=== PATIENT | female | born 1935 | race Caucasian/White ===

== ENCOUNTER 2018-08-15 18:56 | Emergency (ER) | payer OTHER, BC ==
[2018-08-15 19:02] VITALS: BP 97/72; PULSE 64; TEMP 98; BMI 28.3
--- NOTE | 2018-08-15 20:11 | PDOC ---
History of Present Illness - General Chief Complaint: Injury Stated Complaint: FALL, BACK PAIN Time Seen by Provider: 08/15/18 19:57 History Source: Patient, Old Records Exam Limitations: No Limitations - History of Present Illness Initial Comments: 08/15/18 20:08 HISTORY OF PRESENT ILLNESS: This is an 83-year-old woman who is a poor historian presents emergency Department with right hip pain status post fall aroung 3pm. When questioned about the fall patient is unable to recall any of the circumstances. Patient does state that she "passed out" prior to falling. Patient does not remember striking her head. Patient states she was able to get to her feet with assistance and a continued running her daily errands. Patient denies any fevers, chills, incontinence, oral trauma, chest pain, shortness of breath, abdominal pain, nausea, vomiting, diarrhea, dysuria, hematuria. No recent travel or sick contacts. PAST MEDICAL HISTORY: does not remember SURGICAL HISTORY: Denies ALLERGIES: No known drug allergies PMD- does not remember Cards- [facility] REVIEW OF SYSTEMS- poor historian and unreliable General/Constitutional: Denies fever or chills. Denies weakness, weight change. HEENT: Denies change in vision. Denies ear pain or discharge. Denies sore throat. Cardiovascular: Denies chest pain or shortness of breath. Respiratory: Denies cough, wheezing, or hemoptysis. Gastrointestinal: Denies nausea, vomiting, diarrhea or constipation. Denies rectal bleeding. Genitourinary: Denies dysuria, frequency, or change in urination. Musculoskeletal: Right posterior hip pain. Denies neck or back pain. Skin and breasts: Denies rash or easy bruising. Neurologic: Denies headache, vertigo, or loss of sensation. + loss of consciousness. Psychiatric: Denies depression or anxiety. Endocrine: Denies increased thirst. Denies abnormal weight change. Hematologic/Lymphatic: Denies anemia, easy bleeding, or history of blood clots. Allergic/Immunologic: Denies hives or skin allergy. Denies latex allergy. PHYSICAL EXAM General Appearance: Well-appearing, appropriately dressed. No apparent distress , no intoxication. HEENT: EOMI, PERRLA, normal ENT inspection, normal voice, TMs normal, pharynx normal. No conjunctival pallor. No photophobia, scleral icterus. Neck: Supple. Trachea midline. No tenderness, rigidity, carotid bruit, stridor , lymphadenopathy, or thyromegaly. Respiratory/Chest: Lungs CTAB. No shortness of breath, chest tenderness, respiratory distress, accessory muscle use. No crackles, rales, rhonchi, stridor , wheezing, dullness Cardiovascular: RRR. S1, S2. No JVD, murmur, bradycardia, tachycardia. BP-97/ 72. Vascular Pulses: Dorsalis-Pedis (R): 2+, Dorsalis-Pedis (L): 2+ Gastrointestinal/Abdominal: Normal bowel sounds. Abdomen soft, non-distended. No tenderness or rebound tenderness. No organomegaly, pulsatile mass, guarding, hernia, hepatomegaly, splenomegaly. Lymphatic: No adenopathy, tenderness. Musculoskeletal/Extremities: Normal inspection. FROM of all extremities, normal capillary refill. Pelvis Stable. TTP right posterior trochanter. No deformity to right femur. No CVA tenderness. No tenderness to extremities, swelling, erythema or deformity. +1 pitting edema to BLE. Integumentary: Appropriate color, dry, warm. No cyanosis, erythema, jaundice or rash Neurologic: heel cover softener II-XII intact. Fully oriented, alert. Appropriate mood/affect. Motor strength 5/5. No appreciable EOM palsy, facial droop or sensory deficit. Past History - Past Medical History Allergies/Adverse Reactions: Allergies Allergy/AdvReac Type Severity Reaction Status Date / Time No Known Allergies Allergy Verified 10/20/16 19:55 Home Medications: Ambulatory Orders Hydrochlorothiazide 25 mg PO DAILY 10/20/16 Lisinopril 5 mg PO DAILY 10/20/16 HTN: Yes (believe on a diuretic combination antihypertensive) - Suicide/Smoking/Psychosocial Hx Smoking History: Never smoked Hx Alcohol Use: No Substance Use Type: None *Physical Exam - Vital Signs Last Vital Signs Temp Pulse Resp BP Pulse Ox 98.0 F 64 20 97/72 100 08/15/18 18:58 08/15/18 18:58 08/15/18 18:58 08/15/18 18:58 08/15/18 18:58 ED Treatment Course - LABORATORY CBC & Chemistry Diagram: 08/15/18 21:40 08/15/18 21:40 Medical Decision Making - Medical Decision Making 08/15/18 20:19 A/P: 83-year-old woman with questionable syncopal episode and right hip pain A&O 3 No obvious trauma to head No tenderness to palpation of cervical spine Lungs clear to auscultation bilaterally RRR. S1 and S2 present. No murmur, rub or gallop noted Normoactive bowel sounds Abdomen soft nontender nondistended Tenderness to palpation over the right trochanter posteriorly. No tenderness to palpation of the right femur Pelvis stable No shortening or rotation of RLE Able to perform straight leg raises without difficulty X-rays of right hip, pelvis and femur to rule out fracture- less likely as she has been walking since injury. Cardiac workup as patient had a ?syncopal episode- unclear as patient is unreliable and poor historian CT of the head and neck given fall from standing height I will call the patient's tunneller Dr. Boswell Patient will likely need admission. 08/15/18 22:35 EKG reveals sinus bradycardia with rate of 57. QTC-467ms. No ischemic changes noted. Laboratory testing reveals potassium-3.4. Otherwise normal including normal troponin. 08/16/18 01:17 Patient expressed displeasure in length of time of evaluation. CT scan has not yet been performed. Explained to the patient she needs full and thorough evaluation of her syncopal episode prior to discharge. Patient became increasingly angry and was requesting to leave AGAINST MEDICAL ADVICE. Was explained to the patient that at 12:30 in the morning is unsafe for somebody who has a previous fall that day to walk home without assistance. Patient pickle solution maker her cell phone and called her friend who is a engine watchman who showed up for transport home. Patient gave permission to discuss the case with the previous. As explained to the engine watchman that the patient needs continued evaluation and leaving the hospital AGAINST MEDICAL ADVICE potentially dangerous that she needs continued evaluation of her syncopal episode. understood that the patient was not being discharged but leaving AGAINST MEDICAL ADVICE. agreed to take patient home where she lives by herself. As explained to the patient that she should follow-up with Dr. Boswell for continued evaluation as an outpatient. Patient has agreed to see Dr. Boswell as an outpatient for continued evaluation. As explained to the patient her radiographic testing had not been evaluated and she may receive a phone call to return for care if any abnormalities are noted. Patient verbalizes understanding. *DC/Admit/Observation/Transfer Diagnosis at time of Disposition: Syncope and collapse - Discharge Dispostion Disposition: AGAINST MEDICAL ADVICE Condition at time of disposition: Fair - Referrals - Patient Instructions Additional Instructions: Your leaving the hospital AGAINST MEDICAL ADVICE. Evaluation has not been completed in the emergency department or possible hospitalization. Please call Dr. Boswell her tunneller for continued evaluation for syncopal episode including ultrasound studies. Take Tylenol or Motrin as needed for pain. Follow manufacture's instructions for appropriate dosage. As you are leaving AGAINST MEDICAL ADVICE you can return to the hospital at any time for continued evaluation. - Post Discharge Activity
[2018-08-15 21:48] LABS: BASO % 0.4 % (0-2.0); EOS % 1.1 % (0-4.5); HEMATOCRIT 35.4 % (32.4-45.2); HEMOGLOBIN 11.7 GM/dL (10.7-15.3); MCH 30.7 pg (25.7-33.7); MCHC 33.1 g/dl (32.0-36.0); MEAN CELL VOLUME 92.7 fl (80-96); MEAN PLT VOLUME 8.7 fl (7.5-11.1); MONO % 7.8 % (3.8-10.2); NEUT % 67.7 % (42.8-82.8); PLATELET COUNT 262 K/MM3 (134-434); RBC 3.81 M/mm3 (3.60-5.2); WHITE BLOOD COUNT 7.3 K/mm3 (4.0-10.0)
[2018-08-15 21:59] LABS: INR 1.04 (0.83-1.09); PROTHROMBIN TIME (PATIENT) 12.3 SEC (9.7-13.0)
[2018-08-15 22:13] LABS: ALBUMIN 3.3 g/dl (3.4-5.0); ALK PHOS 76 U/L (45-117); ANION GAP 8 MMOL/L (8-16); BILIRUBIN,TOTAL 0.6 mg/dL (0.2-1); BLOOD UREA NITROGEN 15 mg/dL (7-18); CALCIUM 8.5 mg/dL (8.5-10.1); CHLORIDE 105 mmol/L (98-107); CO2 28 mmol/L (21-32); CREATININE 0.9 mg/dL (0.55-1.3); GLUCOSE,RANDOM 92 mg/dL (74-106); MAGNESIUM 2.3 mg/dL (1.8-2.4); POTASSIUM 3.4 mmol/L (3.5-5.1); SGOT/AST 13 U/L (15-37); SGPT/ALT 11 U/L (13-61); SODIUM 140 mmol/L (136-145); TOT PROT 6.4 g/dl (6.4-8.2)
--- NOTE | 2018-08-17 11:05 | EKG ---
Test Reason : Blood Pressure : / mmHG Vent. Rate : 058 BPM Atrial Rate : 058 BPM P-R Int : 202 ms QRS Dur : 096 ms QT Int : 476 ms P-R-T Axes : 064 -01 051 degrees QTc Int : 467 ms SINUS BRADYCARDIA OTHERWISE NORMAL ECG WHEN COMPARED WITH ECG OF 01-DEC-2013 10:27, PREMATURE VENTRICULAR COMPLEXES ARE NO LONGER PRESENT Confirmed by JEFERSON GRIMES MD ([id number]) on 08/17/2018 11:04:28 AM Referred By: Confirmed By:JEFERSON GRIMES MD
== END 2018-08-16 01:42 | disposition left against medical advice (07) ==
LOC: JER 18:56
DX: R55 Syncope and collapse (principal); W18.39XA Other fall on same level, initial encounter; Y93.89 Activity, other specified; Y92.038 Other place in apartment as the place of occurrence of the external cause; Y99.8 Other external cause status; I10 Essential (primary) hypertension
CPT/HCPCS: 36415; 71046-TC-FY; 73523-TC-FY; 73552-TC-RT-FY; 80053; 82272; 82550; 83735; 84484; 85025; 85610; 93005; 93010; 99282-25

== ENCOUNTER 2018-12-01 17:10 | Inpatient (IN) | payer OTHER, BC ==
--- NOTE | 2018-12-01 17:21 | PDOC ---
Rapid Medical Evaluation Chief Complaint: Wound Time Seen by Provider: 12/01/18 17:16 Medical Evaluation: Allergies Allergy/AdvReac Type Severity Reaction Status Date / Time No Known Allergies Allergy Verified 10/20/16 19:55 12/01/18 17:20 I have performed a brief in person evaluation of this patient. The patient's CC: Foot infection HPI: Pt is an 83 YO female who is accompanied by her fire extinguisher charger who states that over the past 6 months she has had a right foot infection and went to see her PCP and he gave her an abx which she did not take. Denies hx of DM. PE: Skin: not evaluated at triage Heart: RRR Lungs: Clear MS. moves all extremities without difficulty. Neuro: Alert and oriented Psch: appropriate affect The patient will proceed to main ED for further evaluation. Discharge Disposition - Diagnosis Wound cellulitis - Referrals - Patient Instructions - Post Discharge Activity
[2018-12-01 17:55] LABS: BASO % 0.7 % (0-2.0); EOS % 0.8 % (0-4.5); HEMATOCRIT 41.2 % (32.4-45.2); HEMOGLOBIN 13.7 GM/dL (10.7-15.3); MCH 30.4 pg (25.7-33.7); MCHC 33.3 g/dl (32.0-36.0); MEAN CELL VOLUME 91.4 fl (80-96); MEAN PLT VOLUME 8.7 fl (7.5-11.1); MONO % 6.6 % (3.8-10.2); NEUT % 76.9 % (42.8-82.8); PLATELET COUNT 295 K/MM3 (134-434); RDW 13.4 % (11.6-15.6); WHITE BLOOD COUNT 9.4 K/mm3 (4.0-10.0)
[2018-12-01 18:24] LABS: BLOOD UREA NITROGEN 32 mg/dL (7-18); CHLORIDE 101 mmol/L (98-107); GLUCOSE,RANDOM 94 mg/dL (74-106); POTASSIUM 3.6 mmol/L (3.5-5.1); SODIUM 139 mmol/L (136-145)
[2018-12-01 18:25] LABS: ALBUMIN 3.8 g/dl (3.4-5.0); ALK PHOS 118 U/L (45-117); ANION GAP 10 MMOL/L (8-16); BILIRUBIN,TOTAL 0.4 mg/dL (0.2-1); CALCIUM 9.2 mg/dL (8.5-10.1); CO2 29 mmol/L (21-32); SGOT/AST 22 U/L (15-37); SGPT/ALT 15 U/L (13-61); TOT PROT 7.1 g/dl (6.4-8.2)
--- NOTE | 2018-12-01 20:05 | PDOC ---
History of Present Illness - General Chief Complaint: Wound Stated Complaint: FOOT PAIN Time Seen by Provider: 12/01/18 17:16 History Source: Patient, Other (friends) - History of Present Illness Occurred: reports: other Lower Extremity Pain Location: right: leg Past History - Past Medical History Allergies/Adverse Reactions: Allergies Allergy/AdvReac Type Severity Reaction Status Date / Time No Known Allergies Allergy Verified 12/01/18 17:17 Home Medications: Ambulatory Orders Hydrochlorothiazide 25 mg PO DAILY 10/20/16 Lisinopril 5 mg PO DAILY 10/20/16 COPD: No CHF: No HTN: Yes (believe on a diuretic combination antihypertensive) - Immunization History Immunization Up to Date: Yes - Suicide/Smoking/Psychosocial Hx Smoking History: Never smoked Hx Alcohol Use: No Drug/Substance Use Hx: No Substance Use Type: None Review of Systems - Review of Systems Constitutional: No: Chills, Fever Respiratory: No: Shortness of Breath Cardiac (ROS): No: Chest Pain, Palpitations *Physical Exam - Vital Signs Last Vital Signs Temp Pulse Resp BP Pulse Ox 97.4 F L 106 H 17 134/83 98 12/01/18 17:18 12/01/18 17:18 12/01/18 17:18 12/01/18 17:18 12/01/18 17:18 - Physical Exam General Appearance: Yes: Appropriately Dressed. No: Apparent Distress HEENT: positive: Normal Voice Neck: positive: Supple Respiratory/Chest: positive: Lungs Clear, Normal Breath Sounds. negative: Respiratory Distress Cardiovascular: positive: Regular Rate, S1, S2 Extremity: positive: Pedal Edema (3+ edema w/ venous stasis changes b/l, RLE w/ diffuse erythema to R foot extending into leg, sig ttp w/ increased warmth, unable to palpate pedal pulses b/l) Integumentary: positive: Dry, Warm Neurologic: positive: Fully Oriented, Alert, Normal Mood/Affect Moderate Sedation - Procedure Monitoring Vital Signs: Procedure Monitoring Vital Signs Temperature 97.4 F L 12/01/18 17:18 Pulse Rate 106 H 12/01/18 17:18 Respiratory Rate 17 12/01/18 17:18 Blood Pressure 134/83 12/01/18 17:18 O2 Sat by Pulse Oximetry (%) 98 12/01/18 17:18 ED Treatment Course - LABORATORY CBC & Chemistry Diagram: 12/01/18 17:43 12/01/18 17:43 - ADDITIONAL ORDERS Additional order review: Laboratory Results 12/01/18 12/01/18 17:43 17:43 WBC 9.4 RBC 4.50 Hgb 13.7 Hct 41.2 D MCV 91.4 MCH 30.4 MCHC 33.3 RDW 13.4 Plt Count 295 MPV 8.7 Absolute Neuts (auto) 7.2 Neutrophils % 76.9 Lymphocytes % 15.0 D Monocytes % 6.6 Eosinophils % 0.8 Basophils % 0.7 Nucleated RBC % 0 Sodium 139 Potassium 3.6 Chloride 101 Carbon Dioxide 29 Anion Gap 10 BUN 32 H Creatinine 1.0 Creat Clearance w eGFR 52.69 Random Glucose 94 Calcium 9.2 Total Bilirubin 0.4 AST 22 ALT 15 Alkaline Phosphatase 118 H Total Protein 7.1 Albumin 3.8 12/01/18 17:43 RBC 4.50 MCV 91.4 MCHC 33.3 RDW 13.4 MPV 8.7 Neutrophils % 76.9 Lymphocytes % 15.0 D Monocytes % 6.6 Eosinophils % 0.8 Basophils % 0.7 Medical Decision Making - Medical Decision Making 12/01/18 20:04 83 yo F, h/o HTN, chronic LE edema, prescribed keflex 2 weeks ago for RLE cellulitis, now brought in by friends (a nurse and cover stripper), over concern that infection is getting worse and that pt may not be taking antibiotics. States patient resides alone w/ no family support and does not currently have any home services. Sent. Denies any fever, chills, malaise, chest pain, shortness of breath or palpitations PMD: Dr Eve Greer See exam RLE cellulitis Possible failed po abx -IV abx -labs -US -admit 12/01/18 21:20 Labs unremarkable. Case d/w Dr Swain and pt admitted to Dr Greer *DC/Admit/Observation/Transfer Diagnosis at time of Disposition: Cellulitis of right lower extremity - Discharge Dispostion Condition at time of disposition: Fair Decision to Admit order: Yes - Referrals Referrals: Eve Greer MD [Primary Care Provider] - - Patient Instructions - Post Discharge Activity
[2018-12-01] MEDS ORDERED: VANCOMYCIN 1,000 MG in DEXTROSE 5%-WATER - 250 ML IVPB ONE (20:07)
[2018-12-01] MEDS ORDERED: VANCOMYCIN 1 GRAM (PRE-DOCKED) 1,000 MG/250 ML BAG IVPB ONE (20:11)
[2018-12-01] MEDS ORDERED: LORazepam 1 MG TABLET PO ONE (20:12)
[2018-12-01] MEDS ORDERED: SODIUM CHLORIDE 500 ML IV STA (20:26)
[2018-12-01] MEDS ORDERED: LORazepam 0.5 MG TABLET ONE (20:49)
--- NOTE | 2018-12-01 21:34 | PDOC ---
*Physical Exam - Vital Signs Last Vital Signs Temp Pulse Resp BP Pulse Ox 97.4 F L 106 H 17 134/83 98 12/01/18 17:18 12/01/18 17:18 12/01/18 17:18 12/01/18 17:18 12/01/18 17:18 ED Treatment Course - LABORATORY CBC & Chemistry Diagram: 12/01/18 17:43 12/01/18 17:43 - ADDITIONAL ORDERS Additional order review: Laboratory Results 12/01/18 17:43 Sodium 139 Potassium 3.6 Chloride 101 Carbon Dioxide 29 Anion Gap 10 BUN 32 H Creatinine 1.0 Creat Clearance w eGFR 52.69 Random Glucose 94 Calcium 9.2 Total Bilirubin 0.4 AST 22 ALT 15 Alkaline Phosphatase 118 H Total Protein 7.1 Albumin 3.8 12/01/18 17:43 RBC 4.50 MCV 91.4 MCHC 33.3 RDW 13.4 MPV 8.7 Neutrophils % 76.9 Lymphocytes % 15.0 D Monocytes % 6.6 Eosinophils % 0.8 Basophils % 0.7 - Medications Given in the ED: ED Medications Discontinued Medications Generic Name Dose Route Start Last Admin Trade Name Freq PRN Reason Stop Dose Admin Vancomycin HCl 1,000 mg/ 250 mls @ 250 mls/hr 12/01/18 20:07 12/01/18 20:39 Dextrose IVPB 12/01/18 21:06 250 mls/hr ONCE ONE Administration Protocol Sodium Chloride 500 mls @ 500 mls/hr 12/01/18 20:26 12/01/18 20:57 Normal Saline - IV 12/01/18 21:25 500 mls/hr ASDIR STA Administration Lorazepam 1 mg 12/01/18 20:12 12/01/18 20:57 Ativan - PO 12/01/18 20:13 1 mg ONCE ONE Administration Medical Decision Making - Medical Decision Making 12/01/18 21:33 Patient seen by the advanced practice provider under my direct supervision. Ancillary testing reviewed as necessary. I agree with plan as outlined by the advanced practice provider. *DC/Admit/Observation/Transfer Diagnosis at time of Disposition: Cellulitis of right lower extremity - Discharge Dispostion Condition at time of disposition: Fair - Referrals - Patient Instructions - Post Discharge Activity
[2018-12-02] MEDS: AMPICILLIN NA/SULBACTAM NA 1.5 GM in SODIUM CHLORIDE 100 ML IVPB SCH ×4 (04:37→16:44)
[2018-12-02 08:36] VITALS: BMI 26.8
[2018-12-02 09:40] LABS: N-TERMINAL BNP 167.3 pg/ml (5-450)
--- NOTE | 2018-12-02 09:44 | HP ---
Admitting History and Physical - Primary Care Physician PCP: Eve Greer - Admission Chief Complaint: leg swelling and redness History of Present Illness: has history of chronic leg swelling for at least 2-3 months, US has been negative for DVT came to office on Nov 11 for evaluatino of edema, increased redness was given keflex may or may not have been taking it legs are still slightly swollen and quite erythematous, so she was brought in by friend for evaluation and treatment History Source: Patient, Medical Record Limitations to Obtaining History: Other (very hard of hearing) - Past Medical History Cardiovascular: Yes: HTN ...: No - Past Surgical History Past Surgical History: Yes: None - Smoking History Smoking history: Never smoked Have you smoked in the past 12 months: No - Alcohol/Substance Use Hx Alcohol Use: No History of Substance Use: reports: None - Social History Usual Living Arrangement: Yes: Alone ADL: Independent History of Recent Travel: No Home Medications - Allergies Allergies/Adverse Reactions: Allergies Allergy/AdvReac Type Severity Reaction Status Date / Time No Known Allergies Allergy Verified 12/01/18 17:17 - Home Medications Home Medications: Ambulatory Orders Hydrochlorothiazide 25 mg PO DAILY 10/20/16 Lisinopril 5 mg PO DAILY 10/20/16 Family Disease History - Family Disease History Family History: Unremarkable Review of Systems - Review of Systems Constitutional: reports: No Symptoms Eyes: reports: No Symptoms HENT: reports: No Symptoms Neck: reports: No Symptoms Cardiovascular: reports: No Symptoms Respiratory: reports: No Symptoms Gastrointestinal: reports: No Symptoms Genitourinary: reports: No Symptoms Musculoskeletal: reports: No Symptoms Integumentary: reports: No Symptoms, Other (legs are tender) Physical Examination Vital Signs: Vital Signs Temperature 97.3 F L 12/02/18 08:05 Pulse Rate 72 12/02/18 08:05 Respiratory Rate 20 12/02/18 08:05 Blood Pressure 97/60 12/02/18 08:05 O2 Sat by Pulse Oximetry (%) 98 12/02/18 08:47 Constitutional: Yes: Well Nourished, Poor Hygeine Eyes: Yes: Conjunctiva Clear, EOM Intact HENT: Yes: Normocephalic Neck: Yes: Trachea Midline Cardiovascular: Yes: Regular Rate and Rhythm Respiratory: Yes: CTA Bilaterally Gastrointestinal: Yes: Normal Bowel Sounds, Soft Edema: Yes Edema: LLE: 1+, RLE: 1+ Integumentary: Yes: Other (lower leg to mid calf erythematous bilaterally shallow scabbed ulcers over right norman warmth and tenderness present) Neurological: Yes: WNL ...Motor Strength: WNL Labs: CBC, BMP 12/01/18 17:43 12/01/18 17:43 Imaging - Results X-ray: Report Reviewed Ultrasound: Report Reviewed (no DVT, no osteo) Problem List - Problems (1) Hypertension Code(s): I10 - ESSENTIAL (PRIMARY) HYPERTENSION (2) Cellulitis of right lower extremity Code(s): L03.115 - CELLULITIS OF RIGHT LOWER LIMB Assessment/Plan iv abx dvt prophylaxis 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
[2018-12-02] MEDS ORDERED: ACETAMINOPHEN 325 MG TABLET (FP) PO PRN (09:45)
[2018-12-02] MEDS ORDERED: LISINOPRIL 5 MG TABLET (FP) PO SCH (10:00)
[2018-12-02] MEDS ORDERED: SODIUM CHLORIDE 100 ML IVPB ONE ×2 (11:17→16:42)
[2018-12-02] MEDS ORDERED: AMPICILLIN NA/SULBACTAM NA 1.5 GM VIAL ONE ×2 (11:17→16:42)
[2018-12-02] MEDS: ENOXAPARIN NA (PORCINE) 40 MG/0.4 ML DISP.SYRIN SQ SCH (11:21)
[2018-12-02] MEDS: LISINOPRIL 5 MG TABLET (FP) PO SCH (11:32)
--- NOTE | 2018-12-02 12:15 | EKG ---
Test Reason : Blood Pressure : / mmHG Vent. Rate : 072 BPM Atrial Rate : 072 BPM P-R Int : 188 ms QRS Dur : 098 ms QT Int : 432 ms P-R-T Axes : 064 -15 043 degrees QTc Int : 473 ms NORMAL SINUS RHYTHM NORMAL ECG WHEN COMPARED WITH ECG OF 15-AUG-2018 21:54, NO SIGNIFICANT CHANGE WAS FOUND Confirmed by CHRIS BORJAS MD ([id number]) on 12/02/2018 12:15:48 PM Referred By: Confirmed By:CHRIS BORJAS MD
[2018-12-02] MEDS: HYDROCHLOROTHIAZIDE 25 MG TABLET (FP) PO SCH (13:27)
--- NOTE | 2018-12-02 19:02 | PN ---
Progress Note (short form) - Note Progress Note: ID CONSULT DICTATED CELLULITIS LE BILATERALLY OBTAIN BC EMPIRIC CEFAZOLIN
[2018-12-02] MEDS ORDERED: CEFAZOLIN 1 GM/D5W 1 GM/50 ML BAG IVPB SCH (19:15)
[2018-12-02] MEDS: CEFAZOLIN 1 GM/D5W 1 GM/50 ML BAG IVPB SCH (21:19)
--- NOTE | 2018-12-03 01:20 | CONS ---
DATE OF CONSULTATION: 12/02/2018 The patient is an 83-year-old female evaluated for cellulitis of the lower extremities bilaterally. History was obtained from the chart as the patient cannot give a reliable history. According to the chart, she has had a several month history of worsening lower extremity edema. She recently developed erythema, warmth, and swelling of the lower extremities bilaterally and was prescribed Keflex. It is not clear whether or not the patient took the prescribed medication. She now presents to the emergency room with worsening bilateral lower extremity swelling, erythema, and warmth. In the emergency room, she was noted to have bilateral lower extremity cellulitis. An x-ray of the lower extremity shows soft tissue swelling. Doppler examination was negative for DVT. Patient appears slightly confused. She is very hard of hearing. She denies any traumatic injury, although she is noted to have a scabbed abrasion on the right lower extremity. She denies any associated fever or chills. PAST MEDICAL HISTORY: Positive for hypertension. ALLERGIES: No known allergies. MEDICATIONS: Hydrochlorothiazide, lisinopril. SOCIAL HISTORY: Lives at home, nonsmoker, nondrinker. REVIEW OF SYSTEMS: Neurologic: No loss of consciousness, seizure activity, focal weakness. Cardiac: Negative chest pain or palpitations. Respiratory: Negative cough or sputum production. Gastrointestinal: Negative vomiting or diarrhea. Genitourinary: Negative for urinary tract infection. LABORATORY DATA: White count of 9.4, hematocrit 41.2, platelet count of 295, creatinine 1.0. PHYSICAL EXAMINATION: General: She is an elderly female. She appears chronically ill, hard of hearing. Vital Signs: Temperature 98.9, blood pressure 112/76, pulse 85 and regular, respirations 18 per minute. HEENT: Sclerae are anicteric. Heart Sounds: S1, S2. Lungs: Grossly clear. Abdomen: Soft, nontender. Extremities: Bilateral lower extremity edema. There is cellulitis of the lower extremities bilaterally, right greater than left. The right extremity shows some scabbed ulcerations/abrasions over the distal pretibial area. There is erythema and warmth extending from the pretibial area to the foot. A smaller area of erythema is noted in the pretibial aspect of the left lower extremity. No lymphangitic streaking. No drainage noted. IMPRESSION: Bilateral lower extremity cellulitis. PLAN: Await blood culture results. Empiric antibiotic coverage with cefazolin 1 g IV piggyback every 8 hours. Elevation. Analgesics. Local wound care. Will follow. Thank you for the kind referral. RAIMUNDO PEREZ M.D. [id number]
[2018-12-03] MEDS: CEFAZOLIN 1 GM/D5W 1 GM/50 ML BAG IVPB SCH ×3 (02:55→18:04)
--- NOTE | 2018-12-03 08:42 | PN ---
Progress Note (short form) - Note Progress Note: admitted for cellulitis no new complaints Vital Signs Period Temp Pulse Resp BP Sys/Qureshi Pulse Ox Last 24 Hr 98.3 F-99.5 F 65-87 18-18 101-112/43-76 98 s1s2 rrr lungs cta abd soft lower ext edema better shallow likely venous ulcers over right lower ext, oozing serous discharge erythema better scaly old skin on both feet htn cellulitis consult appreciated cont iv abx physical therapy topical lac-hydrin to feet Problem List - Problems (1) Hypertension Code(s): I10 - ESSENTIAL (PRIMARY) HYPERTENSION (2) Cellulitis of right lower extremity Code(s): L03.115 - CELLULITIS OF RIGHT LOWER LIMB
[2018-12-03] MEDS: LISINOPRIL 5 MG TABLET (FP) PO SCH (09:37)
[2018-12-03] MEDS: ENOXAPARIN NA (PORCINE) 40 MG/0.4 ML DISP.SYRIN SQ SCH (09:37)
[2018-12-03] MEDS: HYDROCHLOROTHIAZIDE 25 MG TABLET (FP) PO SCH (09:37)
[2018-12-03] MEDS: AMMONIUM LACTATE 12% LOTION 225 GM BOTTLE TP SCH (14:52)
[2018-12-03] MEDS ORDERED: PT OWN MED DRAWER 7, Y5N ONE (19:07)
[2018-12-04] MEDS: CEFAZOLIN 1 GM/D5W 1 GM/50 ML BAG IVPB SCH ×3 (02:14→17:40)
[2018-12-04 07:56] LABS: BASO % 0.7 % (0-2.0); EOS % 2.7 % (0-4.5); HEMATOCRIT 31.5 % (32.4-45.2); LYMPH % 23.9 % (8-40); MCH 32.3 pg (25.7-33.7); MCHC 34.8 g/dl (32.0-36.0); MEAN CELL VOLUME 92.9 fl (80-96); MEAN PLT VOLUME 9.3 fl (7.5-11.1); MONO % 7.8 % (3.8-10.2); NEUT % 64.9 % (42.8-82.8); PLATELET COUNT 202 K/MM3 (134-434); RBC 3.39 M/mm3 (3.60-5.2); RDW 13.3 % (11.6-15.6); WHITE BLOOD COUNT 5.3 K/mm3 (4.0-10.0)
[2018-12-04 08:35] LABS: ALBUMIN 2.7 g/dl (3.4-5.0); ALK PHOS 97 U/L (45-117); ANION GAP 8 MMOL/L (8-16); BILIRUBIN,TOTAL 0.3 mg/dL (0.2-1); BLOOD UREA NITROGEN 28 mg/dL (7-18); CHLORIDE 107 mmol/L (98-107); CO2 28 mmol/L (21-32); CREATININE 0.9 mg/dL (0.55-1.3); GLUCOSE,RANDOM 95 mg/dL (74-106); POTASSIUM 3.7 mmol/L (3.5-5.1); SGOT/AST 13 U/L (15-37); SGPT/ALT 10 U/L (13-61); SODIUM 143 mmol/L (136-145); TOT PROT 5.4 g/dl (6.4-8.2)
--- NOTE | 2018-12-04 08:59 | PN ---
Progress Note (short form) - Note Progress Note: admitted for cellulitis no new complaints CBC, BMP 12/04/18 06:45 12/04/18 06:45 Vital Signs Period Temp Pulse Resp BP Sys/Qureshi Pulse Ox Last 24 Hr 98.4 F-99.3 F 60-71 18-20 94-114/46-60 96-96 s1s2 rrr lungs cta abd soft lower ext edema better shallow likely venous ulcers over right lower ext, oozing serous discharge erythema better scaly old skin on both feet htn cellulitis consult appreciated cont iv abx change to po within 24 hours if ok with id physical therapy topical lac-hydrin to feet xerofrom dressing change dc planning with VNS pt refuses STR Problem List - Problems (1) Hypertension Code(s): I10 - ESSENTIAL (PRIMARY) HYPERTENSION (2) Cellulitis of right lower extremity Code(s): L03.115 - CELLULITIS OF RIGHT LOWER LIMB
[2018-12-04] MEDS: HYDROCHLOROTHIAZIDE 25 MG TABLET (FP) PO SCH (10:07)
[2018-12-04] MEDS: ENOXAPARIN NA (PORCINE) 40 MG/0.4 ML DISP.SYRIN SQ SCH (10:08)
--- NOTE | 2018-12-04 13:19 | PN ---
Progress Note, Physician History of Present Illness: Awake, alert Hard of hearing No c/o leg pain Afebrile WBC WNL BC (-) - Current Medication List Current Medications: Active Medications Acetaminophen (Tylenol -) 650 mg PO Q6H PRN PRN Reason: PAIN Enoxaparin Sodium (Lovenox -) 40 mg SQ DAILY [facility] Last Admin: 12/04/18 10:08 Dose: 40 mg Hydrochlorothiazide (Hctz -) 25 mg PO DAILY [facility] Last Admin: 12/04/18 10:07 Dose: 25 mg Cefazolin Sodium (Ancef 1 Gm Premixed Ivpb -) 1 gm in 50 mls @ 100 mls/hr IVPB Q8H-IV [facility] Last Admin: 12/04/18 10:08 Dose: 100 mls/hr Lactic Acid (Lac-Hydrin 12) 1 applic TP DAILY [facility] Last Admin: 12/03/18 14:52 Dose: 1 applic - Objective Vital Signs: Vital Signs Temperature 98.8 F 12/04/18 09:28 Pulse Rate 71 12/04/18 09:28 Respiratory Rate 20 12/04/18 09:28 Blood Pressure 111/61 12/04/18 09:28 O2 Sat by Pulse Oximetry (%) 99 12/04/18 09:00 Constitutional: Yes: No Distress, Obese Eyes: Yes: Conjunctiva Clear Cardiovascular: Yes: Regular Rate and Rhythm, S1, S2 Respiratory: Yes: CTA Bilaterally Gastrointestinal: Yes: Normal Bowel Sounds, Soft, Abdomen, Obese Extremities: Yes: Other (dry abrasion R pretibial area. Erythema/ warmth LE bilaterally almost completely resolved) Edema: Yes Edema: LLE: 2+, RLE: 2+ Labs: CBC, BMP 12/04/18 06:45 12/04/18 06:45 Assessment/Plan Bilateral LE cellulitis- improved Substitute po keflex 500mg po bid x7d next 24h
[2018-12-04] MEDS ORDERED: PT OWN MED DRAWER 7, Y5N ONE (13:40)
[2018-12-04] MEDS: AMMONIUM LACTATE 12% LOTION 225 GM BOTTLE TP SCH (13:42)
[2018-12-05] MEDS: CEFAZOLIN 1 GM/D5W 1 GM/50 ML BAG IVPB SCH ×2 (02:34→09:33)
--- NOTE | 2018-12-05 08:05 | DS ---
Physical Examination Vital Signs: Vital Signs Temperature 98.2 F 12/05/18 06:00 Pulse Rate 57 L 12/05/18 06:00 Respiratory Rate 18 12/05/18 06:00 Blood Pressure 128/57 L 12/05/18 06:00 O2 Sat by Pulse Oximetry (%) 99 12/04/18 21:00 Constitutional: Yes: No Distress, Calm Eyes: Yes: EOM Intact HENT: Yes: Normocephalic Neck: Yes: Trachea Midline Cardiovascular: Yes: Regular Rate and Rhythm Respiratory: Yes: CTA Bilaterally Gastrointestinal: Yes: Normal Bowel Sounds, Soft Edema: LLE: 1+, RLE: 1+ Peripheral Pulses WNL: Yes Integumentary: Yes: Other (erythema better, swelling better, shallow clean based ulcers, healing) Neurological: Yes: WNL Labs: CBC, BMP 12/04/18 06:45 12/04/18 06:45 Discharge Summary Reason For Visit: CELLULITIS OF RIGHT LOWER EXTREMITY Current Active Problems Cellulitis of right lower extremity (Acute) Hypertension (Acute) Hospital Course: admitted for lower ext. cellulitis better with iv abx, elevation afebrile, hemodinamically stable medically clear to dc home with VNS Condition: Fair - Instructions Referrals: Eve Greer MD [Primary Care Provider] - Disposition: VNS/HOME HEALTH CARE - Home Medications Comprehensive Discharge Medication List: Ambulatory Orders Hydrochlorothiazide 25 mg PO DAILY 10/20/16 Ammonium Lactate Lotion [Lac-Hydrin 12] 1 applic TP DAILY #1 bottle 12/05/18 Cephalexin [Keflex] 500 mg PO BID #14 capsule 12/05/18
[2018-12-05] MEDS ORDERED: PT OWN MED DRAWER 7, Y5N ONE (09:13)
[2018-12-05 09:18] VITALS: BP 127/65; PULSE 63; TEMP 98
[2018-12-05] MEDS: ENOXAPARIN NA (PORCINE) 40 MG/0.4 ML DISP.SYRIN SQ SCH (09:33)
[2018-12-05] MEDS: HYDROCHLOROTHIAZIDE 25 MG TABLET (FP) PO SCH (09:33)
[2018-12-05] MEDS: AMMONIUM LACTATE 12% LOTION 225 GM BOTTLE TP SCH (09:36)
== END 2018-12-05 12:22 | disposition home health service (06) | DRG 603 ==
LOC: JER 17:10 → JERBED 20:25 → J5S 12-02 06:03
PROVIDERS: ADMIT Internal Medicine; ATTEND Internal Medicine
DX: L03.115 Cellulitis of right lower limb (principal); I83.208 Varicose veins of unspecified lower extremity with both ulcer of other part of lower extremity and inflammation; I10 Essential (primary) hypertension
CPT/HCPCS: 36415; 71045-TC-FY; 73610-TC-RT-FY; 73630-TC-RT-FY; 80053; 83880; 85025; 87040; 93005; 93010; 93971-TC; 97116-GP; 97161-GP; 99283-25

== ENCOUNTER 2019-04-20 14:20 | Inpatient (IN) | payer OTHER, BC ==
--- NOTE | 2019-04-20 14:58 | PDOC ---
History of Present Illness - General Chief Complaint: Bleeding from Anus Stated Complaint: BLEEDING Time Seen by Provider: 04/20/19 14:39 - History of Present Illness Initial Comments: 04/20/19 16:58 83f withpmh of HTN and venous stasis presnets to the ED with her director pediatric for new onset rectal bleeding with clots after going to the bathroom today. She states that she noticed a new "growth" that wasn't there before. As per director pediatric she's got very poor follow up and hates going to the doctor. She saw Dr. Boswell this morning who sent her to this Ed when her BP was in the high 70's. 04/20/19 17:44 Past History - Past Medical History Allergies/Adverse Reactions: Allergies Allergy/AdvReac Type Severity Reaction Status Date / Time No Known Allergies Allergy Verified 04/20/19 14:28 Home Medications: Ambulatory Orders Hydrochlorothiazide 25 mg PO DAILY 10/20/16 Ammonium Lactate Lotion [Lac-Hydrin 12] 1 applic TP DAILY #1 bottle 12/05/18 COPD: No CHF: No HTN: Yes (believe on a diuretic combination antihypertensive) - Immunization History Immunization Up to Date: Yes - Suicide/Smoking/Psychosocial Hx Smoking History: Unknown if ever smoked Have you smoked in the past 12 months: No Cigars Per Day: 0 Information on smoking cessation initiated: No Hx Alcohol Use: No Drug/Substance Use Hx: No Substance Use Type: None Hx Substance Use Treatment: No Review of Systems - Review of Systems Able to Perform ROS?: Yes Constitutional: No: Symptoms Reported HEENTM: No: Symptoms Reported Respiratory: No: Symptoms reported Cardiac (ROS): No: Symptoms Reported ABD/GI: Yes: See HPI : No: Symptoms Reported Musculoskeletal: No: Symptoms Reported Integumentary: Yes: See HPI (b/l leg swelling with pitting edema) Neurological: No: Symptoms reported All Other Systems: Reviewed and Negative *Physical Exam - Vital Signs Last Vital Signs Temp Pulse Resp BP Pulse Ox 98.2 F 73 20 87/42 L 98 04/20/19 14:28 04/20/19 14:28 04/20/19 14:28 04/20/19 14:28 04/20/19 14:28 - Physical Exam General Appearance: Yes: Disheveled HEENT: positive: EOMI, DANNI, Other (edentulous) Respiratory/Chest: positive: Lungs Clear, Normal Breath Sounds. negative: Chest Tender, Respiratory Distress Cardiovascular: positive: Regular Rhythm, Regular Rate, S1, S2 Gastrointestinal/Abdominal: positive: Protuberent. negative: Tender Rectal Exam: positive: other (rectal prolapse 12cm, reduced manually ) Extremity: positive: Pedal Edema, Swelling (4+, chronic), Inflammation Neurologic: positive: Other (PAtient very hard of hearing. ) ED Treatment Course - LABORATORY CBC & Chemistry Diagram: 04/20/19 15:03 04/20/19 15:03 Medical Decision Making - Medical Decision Making 04/20/19 17:33 Rectal prolapse reduced. Basic labs ekg ordered to make sure theres no anemia. Labs WNL, probable Project Construction Assistant Manager worried patient can't take of herself, will admit and get social work faculty member on the case. Spoke to Dr. Vargas about the rectal prolapse, said this is managed by Colorectal Surgery. Will see patient. Patient admitted to Dr Torrez under Dr. Manzo. *DC/Admit/Observation/Transfer Diagnosis at time of Disposition: Dehydration, Hypotension, Rectal prolapse - Discharge Dispostion Decision to Admit order: Yes - Referrals - Patient Instructions - Post Discharge Activity
--- NOTE | 2019-04-20 15:24 | EKG ---
Test Reason : Blood Pressure : / mmHG Vent. Rate : 071 BPM Atrial Rate : 071 BPM P-R Int : 184 ms QRS Dur : 094 ms QT Int : 436 ms P-R-T Axes : 047 -25 095 degrees QTc Int : 473 ms SINUS RHYTHM WITH PREMATURE ATRIAL COMPLEXES CANNOT RULE OUT ANTERIOR INFARCT , AGE UNDETERMINED T WAVE ABNORMALITY, CONSIDER LATERAL ISCHEMIA LEFT AXIS DEVIATION ABNORMAL ECG WHEN COMPARED WITH ECG OF 01-DEC-2018 23:21, PREMATURE ATRIAL COMPLEXES ARE NOW PRESENT T WAVE INVERSION NOW EVIDENT IN LATERAL LEADS Confirmed by MD Tung, Rosalino ([id number]) on 04/20/2019 3:24:12 PM Referred By: Confirmed By:Rosalino Ruby MD
[2019-04-20] MEDS ORDERED: SODIUM CHLORIDE 1,000 ML IV STA (15:36)
[2019-04-20 15:47] LABS: BASO % 0.5 % (0-2.0); EOS % 0.2 % (0-4.5); HEMATOCRIT 39.1 % (32.4-45.2); HEMOGLOBIN 12.8 GM/dL (10.7-15.3); LYMPH % 10.7 % (8-40); MCH 29.6 pg (25.7-33.7); MCHC 32.6 g/dl (32.0-36.0); MEAN CELL VOLUME 90.6 fl (80-96); MEAN PLT VOLUME 9.6 fl (7.5-11.1); MONO % 6.3 % (3.8-10.2); NEUT % 82.3 % (42.8-82.8); RBC 4.32 M/mm3 (3.60-5.2); RDW 14.3 % (11.6-15.6); WHITE BLOOD COUNT 11.5 K/mm3 (4.0-10.0)
[2019-04-20 15:49] LABS: PLATELET COUNT 308 K/MM3 (134-434)
[2019-04-20 15:55] LABS: INR 1.08 (0.83-1.09); PROTHROMBIN TIME (PATIENT) 12.7 SEC (9.7-13.0)
[2019-04-20 15:57] LABS: ACTIVATED PTT 28.4 SECONDS (25.2-36.5)
[2019-04-20 16:16] LABS: ALBUMIN 3.7 g/dl (3.4-5.0); ALK PHOS 109 U/L (45-117); ANION GAP 7 MMOL/L (8-16); BILIRUBIN,TOTAL 1.1 mg/dL (0.2-1); CALCIUM 8.9 mg/dL (8.5-10.1); CHLORIDE 108 mmol/L (98-107); CO2 27 mmol/L (21-32); CREATININE 1.4 mg/dL (0.55-1.3); GLUCOSE,RANDOM 94 mg/dL (74-106); N-TERMINAL BNP 583.7 pg/ml (5-450); POTASSIUM 3.6 mmol/L (3.5-5.1); SGOT/AST 14 U/L (15-37); SGPT/ALT 8 U/L (13-61); SODIUM 142 mmol/L (136-145); TOT PROT 6.6 g/dl (6.4-8.2)
--- NOTE | 2019-04-20 16:28 | PDOC ---
Documentation entered by Adriana Cat SCRIBE, acting as scribe for Kenji Mclaughlin MD. Kenji Mclaughlin MD: This documentation has been prepared by the Stephania ortiz Brenda, SCRIBE, under my direction and personally reviewed by me in its entirety. I confirm that the documentation accurately reflects all work, treatment, procedures, and medical decision making performed by me. Attending Attestation - Resident Resident Name: Salinas Lezama - ED Attending Attestation I have performed the following: I have examined & evaluated the patient, The case was reviewed & discussed with the resident, I agree w/resident's findings & plan, Exceptions are as noted - HPI HPI: 04/20/19 16:20 The patient is an 83 year old female with a significant past medical history of HTN and hx of cellulitis presents to the ED with rectal pain and bleeding. The patient was initially brought to the hospital for a routine appointment with her eyelet operator. However, while in the office, pt began to complain of rectal pain and bleeding and was subsequently brought to the ED. Pt is unable to recall how long the problem has been going on. She denies any abdominal pain. Denies vomiting. Denies F/C. Pt is accompanied to ER by her quality assurance/r&d lab technician, who notes that pt lives alone and has been taking poor care of herself. Pt is supposed to have visiting nurses but has refused to let them into her house. In ED, pt is disheveled, covered in filth with open wounds on her legs. Allergies: NKA Social history: The patient has a history of poor follow up. The patient lives independently, without assistance. PCP: Eve Greer Cards: Dr. Waters - Physicial Exam PE: 04/20/19 15:13 GENERAL: Awake, alert, and fully oriented, in no acute distress. HEAD: No signs of trauma EYES: PERRLA, EOMI, sclera anicteric, conjunctiva clear ENT: Auricles normal inspection, hearing grossly normal, nares patent, oropharynx clear without exudates. Moist mucosa NECK: Nontender, no stepoffs, Normal ROM, supple, no lymphadenopathy, JVD, or masses LUNGS: Breath sounds equal, clear to auscultation bilaterally. No wheezes, and no crackles HEART: Regular rate and rhythm, normal S1 and S2, no murmurs, rubs or gallops ABDOMEN: Soft, nontender, normoactive bowel sounds. No guarding, no rebound. No masses EXTREMITIES: +2 PE BLE, open wounds with bleeding, mild erythema NEUROLOGICAL: Cranial nerves II through XII intact. 5/5 strength and sensation in all extremities, Normal speech, normal gait, normal cerebellar function SKIN: Warm, Dry, normal turgor, no rashes or lesions noted. RECTAL: + Large rectal prolapse with + blood - Medical Decision Making 04/20/19 16:32 83 F with rectal pain and bleeding, found to have large rectal prolapse. Partially reduced in ED. Pt also found to be hypotensive, likely 2/2 dehydration. Pt is disheveled and per pt's quality assurance/r&d lab technician has not been taking care of herself. Will also evaluate for sepsis and anemia. - Labs, cultures - CXR, UA - IVF 04/20/19 16:41 Labs notable for mild RACHEAL Otherwise unremarkable BP improved s/p 1L NS Will admit for dehydration and FTT
[2019-04-20] MEDS ORDERED: CEPHALEXIN MONOHYDRATE 500 MG CAPSULE (UD) PO ONE (17:27)
[2019-04-20] MEDS ORDERED: AMPICILLIN NA/SULBACTAM NA 1.5 GM in SODIUM CHLORIDE 100 ML IVPB ONE (17:29)
--- NOTE | 2019-04-20 17:36 | HP ---
Admitting History and Physical - Primary Care Physician PCP: Eve Greer - Admission Chief Complaint: Recat pain and Bleeding History of Present Illness: 83 yrs old F lives alone H/O Dementia, HTN, frequent Dizziness due to orthostatic Hypotention, chronic venous insufficiency and ulceration, today visited her time study technologist office for routine F/u c/o feeling unwell, rectal pain and some rectal bleeding BP recorded 70/50 and as per time study technologist , patient was more confused from base line so transferred to ED for evaluation in the Ed patient was noted hypotensive and rectal prolapse was noted as per ED note large rectal prolapse pink mucosea with some blood tinged mucous no clinical signs of necrosis, rectal prolapse was reduced , lab shows dehydration received IV Hydration with appropite rise in the BP as per cardiology note patient lives alone considering gradual decline in health and worsening Dementia , needs placement to a [place] History Source: Patient, Medical Record - Past Medical History 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: Yes: Dementia Cardiovascular: Yes: HTN Dermatology: Yes: Cellulitis - Past Surgical History Past Surgical History: Yes: None - Smoking History Smoking history: Unknown if ever smoked Have you smoked in the past 12 months: No - Alcohol/Substance Use Hx Alcohol Use: No History of Substance Use: reports: None - Social History ADL: Independent History of Recent Travel: No Home Medications - Allergies Allergies/Adverse Reactions: Allergies Allergy/AdvReac Type Severity Reaction Status Date / Time No Known Allergies Allergy Verified 04/20/19 14:28 - Home Medications Home Medications: Ambulatory Orders Hydrochlorothiazide 25 mg PO DAILY 10/20/16 Ammonium Lactate Lotion [Lac-Hydrin 12] 1 applic TP DAILY #1 bottle 12/05/18 Family Disease History - Family Disease History Family History: Unremarkable Review of Systems - Review of Systems Constitutional: denies: Chills, Diaphoresis Eyes: denies: Blind Spots, Blurred Vision HENT: denies: Difficult Swallowing, Ear Discharge Neck: denies: Decreased ROM, Lumps, Pain on Movement Cardiovascular: reports: Edema. denies: Chest Pain Respiratory: denies: Cough, Exercise Intolerance, Hemoptysis, Orthopnea, SOB Gastrointestinal: reports: Rectal Bleeding. denies: Abdominal Pain, Bloating Genitourinary: denies: Burning, Discharge Musculoskeletal: denies: Back Pain, Crepitus Neurological: denies: Change in LOC, Change in Speech Psychiatric: denies: Altered Sleep Pattern, Anxiety, Depression Physical Examination Vital Signs: Vital Signs Temperature 98.2 F 04/20/19 15:04 Pulse Rate 66 04/20/19 16:34 Respiratory Rate 17 04/20/19 16:34 Blood Pressure 146/76 04/20/19 16:34 O2 Sat by Pulse Oximetry (%) 100 04/20/19 16:34 Elderly disheveled not in distress HEENT: MM dry , no ear discharge mild tenderness over sinuses NECK; supple, no JVD No bruit CHEST: CTA B/L CVS; S1S2 R no m/g/r ABD: No distention, non tender Bs + EXT: B/L edema and Venous stasis changes , few superficial ulceration with exudates, e COMPUTER 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 ENGINEER: alert but confused and hard of hearing, non focal Neuroeaxm. Labs: CBC,CMP WBC 11.5 K/mm3 (4.0-10.0) H 04/20/19 15:03 RBC 4.32 M/mm3 (3.60-5.2) 04/20/19 15:03 Hgb 12.8 GM/dL (10.7-15.3) 04/20/19 15:03 Hct 39.1 % (32.4-45.2) D 04/20/19 15:03 MCV 90.6 fl (80-96) 04/20/19 15:03 MCH 29.6 pg (25.7-33.7) 04/20/19 15:03 MCHC 32.6 g/dl (32.0-36.0) 04/20/19 15:03 RDW 14.3 % (11.6-15.6) 04/20/19 15:03 Plt Count 308 K/MM3 (134-434) D 04/20/19 15:03 MPV 9.6 fl (7.5-11.1) 04/20/19 15:03 Absolute Neuts (auto) 9.5 K/mm3 (1.5-8.0) H 04/20/19 15:03 Neutrophils % 82.3 % (42.8-82.8) D 04/20/19 15:03 Lymphocytes % 10.7 % (8-40) D 04/20/19 15:03 Monocytes % 6.3 % (3.8-10.2) 04/20/19 15:03 Eosinophils % 0.2 % (0-4.5) D 04/20/19 15:03 Basophils % 0.5 % (0-2.0) 04/20/19 15:03 Nucleated RBC % 0 % (0-0) 04/20/19 15:03 Sodium 142 mmol/L (136-145) 04/20/19 15:03 Potassium 3.6 mmol/L (3.5-5.1) 04/20/19 15:03 Chloride 108 mmol/L (98-107) H 04/20/19 15:03 Carbon Dioxide 27 mmol/L (21-32) 04/20/19 15:03 Anion Gap 7 MMOL/L (8-16) L 04/20/19 15:03 BUN 16.0 mg/dL (7-18) 04/20/19 15:03 Creatinine 1.4 mg/dL (0.55-1.3) H 04/20/19 15:03 Est GFR (CKD-EPI)AfAm 39.61 04/20/19 15:03 Est GFR (CKD-EPI)NonAf 34.18 04/20/19 15:03 Random Glucose 94 mg/dL (74-106) 04/20/19 15:03 Lactic Acid 1.1 mmol/L (0.4-2.0) 04/20/19 16:17 Calcium 8.9 mg/dL (8.5-10.1) 04/20/19 15:03 Total Bilirubin 1.1 mg/dL (0.2-1) H 04/20/19 15:03 AST 14 U/L (15-37) L 04/20/19 15:03 ALT 8 U/L (13-61) L 04/20/19 15:03 Alkaline Phosphatase 109 U/L (45-117) 04/20/19 15:03 Troponin I < 0.02 ng/ml (0.00-0.05) 04/20/19 15:03 B-Natriuretic Peptide 583.7 pg/ml (5-450) H 04/20/19 15:03 Total Protein 6.6 g/dl (6.4-8.2) 04/20/19 15:03 Albumin 3.7 g/dl (3.4-5.0) 06/11/19 15:03 Imaging - Results Chest X-ray: Report Reviewed Ultrasound: Report Reviewed (-ve for DVT) EKG: Report Reviewed (71 NSR MD 184 non specific later laeds changes) Problem List - Problems (1) Rectal prolapse Assessment/Plan: No clinical sign of necrosis , reduced in the Ed , surgery is consulted will f/ u recommendations. Code(s): K62.3 - RECTAL PROLAPSE (2) Dehydration Assessment/Plan: Due to poor Po intake, re evalute after hydration DC HCTZ and Hold BP meds , cardiology input isappreciated. Code(s): E86.0 - DEHYDRATION (3) RACHEAL (acute kidney injury) Assessment/Plan: Due to dehydration F/U BMP after Hydration Code(s): N17.9 - ACUTE KIDNEY FAILURE, UNSPECIFIED (4) Hypotension Assessment/Plan: Due dehydartion H/o orthostatic Hypotention, no clinical sign of cardiac decompensation, BP is improved. Code(s): I95.9 - HYPOTENSION, UNSPECIFIED (5) Dementia Assessment/Plan: Chronic needs Psych consult to evaluate decisional capacity for place Code(s): F03.90 - UNSPECIFIED DEMENTIA WITHOUT BEHAVIORAL DISTURBANCE (6) Diastolic heart failure Code(s): I50.30 - UNSPECIFIED DIASTOLIC (CONGESTIVE) HEART FAILURE (7) Rectal bleed Assessment/Plan: Due to prolapse H/H stable will observe no active bleed. Code(s): K62.5 - HEMORRHAGE OF ANUS AND RECTUM (8) Cellulitis Assessment/Plan: b/l LE Cellulitis with few are of broken skin and discharge will F/u wound culture, Cefazolin and ID consult, LE Doppler is -ve for DVT. Code(s): L03.90 - CELLULITIS, UNSPECIFIED
[2019-04-20] MEDS ORDERED: SODIUM CHLORIDE 1,000 ML IV SCH (17:45)
[2019-04-20 18:10] LABS: MAGNESIUM 2.2 mg/dL (1.8-2.4)
[2019-04-20] MEDS: ACETAMINOPHEN 325 MG TABLET (FP) PO SCH (18:12)
--- NOTE | 2019-04-20 18:22 | PN ---
Progress Note (short form) - Note Progress Note: Pt follows with me in the office for her history of orthostatic hypotension and prior episodes of syncope several years ago. She has been well controlled in regards to this for a few years. Also has chronic venous insufficiency with chronic b/l LE edema. some degree of chronic diastolic chf. she lives alone and has been felt unsafe to care for herself by multiple people that know her including Father Kiera who has been helping her for years. Adult protective services have gone to her home several times but they have not been able to intervene until an official psychiatry evaluation to state that she was not competent to make decisions. she has refused prior interventions to attempt to get her help at home and more recently to get her admitted to a senior care. She came in today for routine visit but was found to be lethargic with BP 70/ 50mmHg, sob, c/o rectal pain and bleeding. she appears more confused than usual. She was brought to the ER for further work up, admission, psych evaluation, and ideally senior care placement once stabilized.
[2019-04-20 22:04] LABS: EPI CELLS 5.1 /HPF (0-5/HPF); HYALINE CASTS 21 /lpf (0-8); URINE APPEARANCE CLOUDY; URINE BACTERIA 39.5 /hpf (NEGATIVE); URINE BILIRUBIN 1+ (NEGATIVE); URINE COLOR DK YELLOW; URINE GLUCOSE (UA) NEGATIVE (NEGATIVE); URINE KETONE 2+ (NEGATIVE); URINE LEUK ESTERASE TRACE (NEGATIVE); URINE NITRITE NEGATIVE (NEGATIVE); URINE PROTEIN 1+ (NEGATIVE); URINE RBC 5 /hpf (0-4); URINE WBC 5 /hpf (0-5)
[2019-04-20] MEDS ORDERED: CEFAZOLIN 1 GM in DEXTROSE 5%-WATER - 50 ML IVPB SCH (22:45)
[2019-04-20 23:10] LABS: URINE CRYSTALS NONE SEEN /hpf
[2019-04-20 23:41] VITALS: BMI 27.6
[2019-04-21] MEDS: ACETAMINOPHEN 325 MG TABLET (FP) PO SCH ×5 (00:21→23:46)
[2019-04-21 07:45] LABS: BLOOD UREA NITROGEN 14.1 mg/dL (7-18); CALCIUM 8.1 mg/dL (8.5-10.1); CREATININE 0.8 mg/dL (0.55-1.3); POTASSIUM 3.5 mmol/L (3.5-5.1)
[2019-04-21 08:07] LABS: BASO % 0.4 % (0-2.0); EOS % 1.5 % (0-4.5); HEMATOCRIT 33.6 % (32.4-45.2); HEMOGLOBIN 11.2 GM/dL (10.7-15.3); LYMPH % 17.6 % (8-40); MCH 30.2 pg (25.7-33.7); MCHC 33.3 g/dl (32.0-36.0); MEAN CELL VOLUME 90.8 fl (80-96); MEAN PLT VOLUME 9.6 fl (7.5-11.1); MONO % 7.1 % (3.8-10.2); NEUT % 73.4 % (42.8-82.8); PLATELET COUNT 217 K/MM3 (134-434); RDW 13.9 % (11.6-15.6)
--- NOTE | 2019-04-21 08:45 | PN ---
Progress Note (short form) - Note Progress Note: h+p reviewed noted recent rectal discomfort and rectal bleed in cardiology office was hypotensive so pt was sent to er for further evaluation CBC, BMP 04/21/19 06:07 04/21/19 06:07 Vital Signs Period Temp Pulse Resp BP Sys/Qureshi Pulse Ox Last 24 Hr 98.2 F-98.9 F 66-75 17-20 87-146/42-76 97-100 s1s2 rrr lungs cta abd soft NT large rectal prolapse at leats 10 to 15 cm with bloody smear on diaper, red legs decreased edema, slight warmth and couple skin opening awake, alert, oriented to place and person, oriented to month and years, not date, but does not get the paper or tv so she is not expected to know, no neurological deficit very hard of hearing imp 83 yo lady with PMH of chronic diastolic CHF, orthostatic hypotension, venous insuff. now with -large rectal prolapse -mild acute kiodney injury correctyed overnight with iv -?lower ext cellulitis also lives at home alone does not accept meaningful help, is a hoarder with poor hygene. adult protective services have known her for years, but given competency in past were not able to help her. ideally she should have help at home or accept snf, but has been very resistant to it in the past. plan -surgical evaluation -stop fluids, is rehydrated and would lioke to avoid increased leg edema -iv abx for now for leg cellulitis -request neurology and psychiatry evaluation for competency, pt does not have good judgment and insight into her living arrangements but otherwise oriented
[2019-04-21] MEDS ORDERED: CEFAZOLIN 1 GM in DEXTROSE 5%-WATER - 50 ML IVPB SCH (10:00)
--- NOTE | 2019-04-21 10:51 | CONSULT ---
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 Rectal prolapse was reduced at least in part in ER. Initial wbc was 11, now normal. Denies F/C, abd pain, N/V, diarrhea, constipation. States stools at home come out easily. Eats mostly chicken nuggets and canned vegetables. There are social concerns about her independent living situation. Surgery was asked to assess. She is seen and examined in bed. She is hard of hearing and forgetful, but answers most questions, though she rambles about unrelated subjects. Denies previous surgeries. Takes one pill a day from Dr. Boswell, not sure what it is. She seems comfortable, except notes that when she lies against the mass, it sometimes is uncomfortable. She states no difficulties with voiding, but has noticed blood (likely from prolapse, not urine). 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 No: Colonoscopy - Alcohol/Substance Use Hx Alcohol Use: No History of Substance Use: reports: None - Smoking History Smoking history: Never smoked Have you smoked in the past 12 months: No - Social History Usual Living Arrangement: Alone ADL: Independent History of Recent Travel: No Home Medications - Allergies Allergies/Adverse Reactions: Allergies Allergy/AdvReac Type Severity Reaction Status Date / Time No Known Allergies Allergy Verified 04/20/19 14:28 - Home Medications Home Medications: Ambulatory Orders Hydrochlorothiazide 25 mg PO DAILY 10/20/16 Ammonium Lactate Lotion [Lac-Hydrin 12] 1 applic TP DAILY #1 bottle 12/05/18 Family Disease History - Family Disease History Family History: Unremarkable (noncontributory) Review of Systems Unable to obtain ROS, reason: limited, pt poor hx - Review of Systems Constitutional: denies: Chills, Fever Eyes: reports: Other (wears glasses). denies: Recent Change in Vision Gastrointestinal: reports: Rectal Bleeding (from the "growth"). denies: Abdominal Pain, Constipation (pt denies), Diarrhea, Nausea, Vomiting Genitourinary: denies: Burning, Dysuria Neurological: reports: Unsteady Gait (uses cane for ambulation) Psychiatric: reports: Other (relates remote history of suicidal ideation (while in [facility])) Physical Exam Vital Signs: Vital Signs Temperature 98.4 F 04/21/19 06:39 Pulse Rate 69 04/21/19 06:39 Respiratory Rate 20 04/21/19 06:39 Blood Pressure 133/65 04/21/19 06:39 O2 Sat by Pulse Oximetry (%) 97 04/20/19 21:00 Constitutional: Yes: Well Nourished, No Distress, Calm Eyes: Yes: Conjunctiva Clear, EOM Intact, Other (glasses) HENT: Yes: Atraumatic, Normocephalic, Other (poor dentition) Neck: Yes: Supple, Trachea Midline Cardiovascular: Yes: Regular Rate and Rhythm, Murmur (soft systolic) Respiratory: Yes: Regular, CTA Bilaterally Gastrointestinal: Yes: Normal Bowel Sounds, Soft. No: Tenderness ...Rectal Exam: Yes: Hemorrhoids/External (few skin tags noted after reduction) , Sphincter Tone Poor, Other (diaper with pinkish mucousy fluid, rectal prolapse present - purple/deep red portion protruding - reduced, but reduced segment feels telescoped and very likely to recur with pushing or defecation - pt felt better after reduction) Renal/: No: CVA Tenderness - Left, CVA Tenderness - Right Musculoskeletal: No: Joint Stiffness, Joint Swelling Extremities: Yes: Erythema (bilat lower legs with dry/flaking rash, edema, small superficial open/weeping areas). No: Cool, Cyanosis Edema: Yes Edema: LLE: 2+, RLE: 2+ Peripheral Pulses WNL: Yes Integumentary: Yes: Rash (bilat lower legs - see above). No: Jaundice Neurological: Yes: Alert, Confusion (and forgetful) Psychiatric: Yes: Alert, Oriented (somewhat) Labs: CBC, BMP 04/21/19 06:07 04/21/19 06:07 CMP Sodium 143 mmol/L (136-145) 04/21/19 06:07 Potassium 3.5 mmol/L (3.5-5.1) 04/21/19 06:07 Chloride 113 mmol/L (98-107) H 04/21/19 06:07 Carbon Dioxide 26 mmol/L (21-32) 04/21/19 06:07 Anion Gap 4 MMOL/L (8-16) L 04/21/19 06:07 BUN 14.1 mg/dL (7-18) 04/21/19 06:07 Creatinine 0.8 mg/dL (0.55-1.3) 04/21/19 06:07 Est GFR (CKD-EPI)AfAm 77.92 04/21/19 06:07 Est GFR (CKD-EPI)NonAf 67.23 04/21/19 06:07 Random Glucose 86 mg/dL (74-106) 04/21/19 06:07 Lactic Acid 1.1 mmol/L (0.4-2.0) 04/20/19 20:09 Calcium 8.1 mg/dL (8.5-10.1) L 04/21/19 06:07 Magnesium 2.2 mg/dL (1.8-2.4) 04/20/19 15:03 Total Bilirubin 1.1 mg/dL (0.2-1) H 04/20/19 15:03 AST 14 U/L (15-37) L 04/20/19 15:03 ALT 8 U/L (13-61) L 04/20/19 15:03 Alkaline Phosphatase 109 U/L (45-117) 04/20/19 15:03 Troponin I < 0.02 ng/ml (0.00-0.05) 04/20/19 15:03 B-Natriuretic Peptide 583.7 pg/ml (5-450) H 04/20/19 15:03 Total Protein 6.6 g/dl (6.4-8.2) 04/20/19 15:03 Albumin 3.7 g/dl (3.4-5.0) 04/20/19 15:03 INR, PTT INR 1.08 (0.83-1.09) 04/20/19 15:03 Urine Test Results Urine Color Dk yellow 04/20/19 21:00 Urine Appearance Cloudy 04/20/19 21:00 Urine pH 5.0 (5.0-8.0) 04/20/19 21:00 Ur Specific [place] 1.030 (1.010-1.035) 04/20/19 21:00 Urine Protein 1+ (NEGATIVE) H 04/20/19 21:00 Urine Glucose (UA) Negative (NEGATIVE) 04/20/19 21:00 Urine Ketones 2+ (NEGATIVE) H 04/20/19 21:00 Urine Blood 1+ (NEGATIVE) H 04/20/19 21:00 Urine Nitrite Negative (NEGATIVE) 04/20/19 21:00 Urine Bilirubin 1+ (NEGATIVE) H 04/20/19 21:00 Ur Leukocyte Esterase Trace (NEGATIVE) 04/20/19 21:00 Problem List - Problems (1) Rectal prolapse Assessment/Plan: admitted to medicine rectal prolapse reduced likely to recur pt informed that it should be pushed back in every time it comes out - can be done manually if she cannot learn to manage it, may refer to colorectal surgeon for evaluation of surgical options pt never had colonoscopy that she knows of consider GI referral as well Code(s): K62.3 - RECTAL PROLAPSE (2) Dehydration Assessment/Plan: renal function improved Code(s): E86.0 - DEHYDRATION (3) Hypertension Code(s): I10 - ESSENTIAL (PRIMARY) HYPERTENSION Qualifiers: Hypertension type: essential hypertension Qualified Code(s): I10 - Essential (primary) hypertension (4) Dementia Code(s): F03.90 - UNSPECIFIED DEMENTIA WITHOUT BEHAVIORAL DISTURBANCE Qualifiers: Dementia type: unspecified type Dementia behavioral disturbance: without behavioral disturbance Qualified Code(s): F03.90 - Unspecified dementia without behavioral disturbance
[2019-04-21] MEDS ORDERED: DEXTROSE 5%-WATER - 50 ML IVPB ONE ×2 (11:43→17:57)
[2019-04-21] MEDS ORDERED: ceFAZolin SODIUM 1 GM VIAL ONE ×2 (11:43→17:56)
--- NOTE | 2019-04-21 11:46 | PN ---
Progress Note (short form) - Note Progress Note: ID CONSULT DICTATED BILATERAL LE CELLULITIS EMPIRIC CEFAZOLIN 1GM Q8H
--- NOTE | 2019-04-21 12:53 | CONS ---
DATE OF CONSULTATION: 04/21/2019 HISTORY OF PRESENT ILLNESS: The patient is an 83-year-old female evaluated for bilateral lower extremity cellulitis. She was admitted to the hospital on April 20, 2019, with reports of rectal bleeding and pain. She was found to have a rectal prolapse. Her course was complicated by hypotension and altered mental status. She was noted to have erythema of the lower extremities bilaterally. Cultures were obtained. She was empirically treated with cefazolin. At the present time, she is awake and alert, but she appears confused. She is in no acute distress. She has no complaints of leg pain. No complaints of fever or chills. No reports of wound drainage. PAST MEDICAL HISTORY: Positive for dementia, hypertension, chronic venous stasis dermatitis. ALLERGIES: No known allergies. MEDICATIONS: Hydrochlorothiazide, Lac-Hydrin. SOCIAL HISTORY: Negative for tobacco or alcohol use. She resides in the community. SYSTEMS REVIEW: Neurologic: No loss of consciousness, seizure activity, or focal weakness. Cardiac: Negative for chest pain or palpitations. Respiratory: Negative for cough or sputum production. Gastrointestinal: Negative for vomiting or diarrhea. Genitourinary: As per HPI. LABORATORY DATA: White count on admission 11.5, presently 7.0, platelet count 217. Creatinine 0.8. Blood and urine cultures are pending. Chest x-ray negative for infiltrates. Doppler exam negative for DVT. PHYSICAL EXAMINATION: General: The patient is awake and alert. She is not acutely toxic-appearing. She is confused. Vital signs: Temperature 98.4, blood pressure 133/65, pulse 69 and regular, respirations 20 per minute. HEENT: Sclerae anicteric. Heart: Heart sounds S1, S2. Lungs: Clear. Abdomen: Soft. No tenderness elicited. No mass, rebound, or rigidity. Extremities: Positive bilateral lower extremity edema 1+ with chronic venous stasis dermatitis. There is superimposed erythema involving both lower extremities with slight warmth. No purulent drainage is noted. No fluctuance, crepitance, or lymphangitic streaking. IMPRESSION: 1. Bilateral lower extremity cellulitis. 2. Leukocytosis. 3. History of rectal prolapse. Await blood culture results, empiric antibiotic coverage with cefazolin 1 g IV piggyback every 8 hours, local wound care, elevation. Will follow. Thank you for the kind referral. RAIMUNDO PEREZ M.D. BETHANY/[id number]
--- NOTE | 2019-04-21 14:30 | PN ---
Mental Health Exam - Mental Status Exam Alert and Oriented to: Time (DISORIENTATED. ) Cognitive Function: Impaired Patient Appearance: Unkempt Mood: Anxious, Expansive Affect: Blunted Patient Behavior: Distractible, Talkative, Cooperative Speech Pattern: Rambling, Perseverating, Tangential Voice Loudness: Severely Loud Thought Process: Disorganized Thought Disorder: Not Present Hallucinations: None Suicidal Ideation: Denies Homicidal Ideation: None Insight/Judgement: Fair Sleep: Fair Appetite: Fair Muscle strength/Tone: Mild Hypotonicity Gait/Station: Deferred
--- NOTE | 2019-04-21 14:37 | PN ---
Progress Note (short form) - Note Progress Note: 83 YO CONSULT CALLED FOR COmpETANCE, DUE TO REDUCED JUDGEMENT, DISORIENTATED ( looking at daily papers to see date, day). Unable to complete clock draw test. 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 See mental status. She is hard of hearing, loud voice, connected in the community with [employer] , walk to daily mass. Enjoys her residence where she lives. Problem List - Problems (1) Dementia without behavioral disturbance Assessment/Plan: Client still retains some judgment to return to her own home. plan to send to senior care may be ethical dilema. contact proxy. Client is competent to make descisions. Code(s): F03.90 - UNSPECIFIED DEMENTIA WITHOUT BEHAVIORAL DISTURBANCE Qualifiers: Alzheimer's disease onset: late-onset
[2019-04-21] MEDS: CEFAZOLIN 1 GM in DEXTROSE 5%-WATER - 50 ML IVPB SCH (19:09)
--- NOTE | 2019-04-21 20:54 | CONSULT ---
Consult - text type - Consultation Consultation Note: NEUROLOGY CONSULTATION is greatly appreciated: Events reviewed and discussed with RN. Patient examined. This 83 yo RH woman lives alone. PMH sig for HTN- on HCTZ. Now admitted with rectal bleeding and rectal prolapse, failure to thrive. On cefazolin for WBC=13 k and b/l lower extremity cellulitis. JEREMIAS: Unkempt. neck supple. no bruits. cor reg. B/L calf edema and cellulitis. -/- Kalin's NEURO: Extremely hard of hearing Possibly delusional that NOT EATING could cure rectal prolapse Ox [facility]. [place]. April Speech fluent + Glabella CN II-XII normal without nystagmus. No drift. Moves all fours with normal strength Areflexic in legs Reduced vibration feet. Gait not tested. IMP: Non-focal exam Mild OMS although sensory impairment (hearing) is clearly contributing. A peripheral neuropathy is likely present, possibly on a nutritional basis. SUGGEST: CT of head (C-) Check B12, TSH, RPR, ESR, CRP Continue antibiotics and hydration PT for gait assessment and Rx, probably with walker. Thiamine 250 mg IV q 8 hrs x 72 hrs Additional history from her Clergyman when he visits tomorrow. Quetiapine 12.5 mg PO q HS, PRNN agitation/sundowning. May need health aide or even SNF level of care. Thank you very much, Abdifatah Ricks MD
[2019-04-21] MEDS: QUEtiapine FUMARATE 25 MG TABLET (FP) PO PRN (23:47)
[2019-04-22] MEDS: ACETAMINOPHEN 325 MG TABLET (FP) PO SCH ×4 (00:19→18:09)
[2019-04-22] MEDS ORDERED: ceFAZolin SODIUM 1 GM VIAL ONE ×4 (01:48→23:49)
[2019-04-22] MEDS ORDERED: DEXTROSE 5%-WATER - 50 ML IVPB ONE ×4 (01:49→23:49)
[2019-04-22] MEDS ORDERED: LORazepam 2 MG/ML SDV VIAL IM ONE (02:00)
[2019-04-22] MEDS: CEFAZOLIN 1 GM in DEXTROSE 5%-WATER - 50 ML IVPB SCH ×4 (04:28→18:08)
[2019-04-22] MEDS ORDERED: LORazepam 2 MG/ML SDV VIAL IVPUSH PRN (05:57)
--- NOTE | 2019-04-22 11:42 | PN ---
Progress Note, Physician History of Present Illness: OOB IN CHAIR CONFUSED NO C/O LEG PAIN LOW GRADE FEVER WBC WNL WOUND C/S PRESUMED MSSA - Current Medication List Current Medications: Active Medications Acetaminophen (Tylenol -) 650 mg PO Q6HPO STEPHANY Last Admin: 04/22/19 06:48 Dose: Not Given Cefazolin Sodium 1 gm/ (Dextrose) 50 mls @ 100 mls/hr IVPB Q8H-IV STEPHANY Last Admin: 04/22/19 11:35 Dose: 100 mls/hr Lorazepam (Ativan Injection -) 1 mg IVPUSH ONCE PRN PRN Reason: AGITATION Stop: 04/23/19 05:56 Quetiapine Fumarate (Seroquel -) 12.5 mg PO HS PRN PRN Reason: AGITATION - Objective Vital Signs: Vital Signs Temperature 98.1 F 04/22/19 07:01 Pulse Rate 70 04/22/19 07:01 Respiratory Rate 20 04/22/19 07:01 Blood Pressure 146/87 04/22/19 07:01 O2 Sat by Pulse Oximetry (%) 97 04/21/19 21:00 Constitutional: Yes: No Distress Eyes: Yes: Conjunctiva Clear Cardiovascular: Yes: Regular Rate and Rhythm, S1, S2 Respiratory: Yes: CTA Bilaterally Gastrointestinal: Yes: Normal Bowel Sounds, Soft. No: Tenderness Extremities: Yes: Other (DECREASED ERYTHEMA LE B/L SUPERFICIAL ULCERS R PRETIBIAL AREA) Edema: Yes Labs: CBC, BMP 04/21/19 06:07 04/21/19 06:07 INR, PTT INR 1.08 (0.83-1.09) 04/20/19 15:03 Assessment/Plan B/L LE CELLULITIS IMPROVED LEUKOCYTOSIS IMPROVED OBS CONTINUE CEFAZOLIN
[2019-04-22] MEDS ORDERED: CYANOCOBALAMIN (VITAMIN B-12) 1000 MCG/1 ML VIAL IM ONE (12:21)
--- NOTE | 2019-04-22 12:25 | PN ---
Progress Note (short form) - Note Progress Note: rectal prolapse was reduced yesterday, now out again agitated last night, received benadryl and ativan at 2 am now confused CBC, BMP 04/21/19 06:07 04/21/19 06:07 Abnormal Lab Results 04/22/19 08:10 C-Reactive Protein 2.7 H Vitamin B12 146 L s1s2 rrr lungs cta abd soft NT large rectal prolapse at leats 10 to 15 cm with bloody smear on diaper, red legs decreased edema, slight warmth and couple skin opening awake, alert, does not follow commands or responds to questions appropriately imp 83 yo lady with PMH of chronic diastolic CHF, orthostatic hypotension, venous insuff. now with -rectal prolapse -mild acute kidney injury corrected with iv -lower ext cellulitis -confusion after bzd, antihistamine plan consults appreciated -will need outpt surgical evaluation for definitive solution for rectal prolapse , but at present unable to discuss it with pt -iv abx for now for leg cellulitis PT DVT prophylaxis
[2019-04-23] MEDS: ACETAMINOPHEN 325 MG TABLET (FP) PO SCH ×4 (00:02→17:51)
[2019-04-23] MEDS: CEFAZOLIN 1 GM in DEXTROSE 5%-WATER - 50 ML IVPB SCH ×3 (01:25→17:51)
--- NOTE | 2019-04-23 09:07 | PN ---
Progress Note (short form) - Note Progress Note: rectal prolapse recurrent Vital Signs Period Temp Pulse Resp BP Sys/Qureshi Pulse Ox Last 24 Hr 98 F-98.6 F 66-85 20-20 137-153/69-89 96 s1s2 rrr lungs cta abd soft NT large rectal prolapse at leats 10 to 15 cm with bloody smear on diaper, red-was unable to reduce at bedside legs decreased edema, slight warmth and couple skin opening awake, alert, does not follow commands or responds to questions appropriately imp 83 yo lady with PMH of chronic diastolic CHF, orthostatic hypotension, venous insuff. now with -rectal prolapse -mild acute kidney injury corrected with iv -lower ext cellulitis -confusion after bzd, antihistamine plan consults appreciated -surgical evaluation for definitive solution for rectal prolapse -iv abx for now for leg cellulitis PT DVT prophylaxis
[2019-04-23] MEDS ORDERED: ceFAZolin SODIUM 1 GM VIAL ONE ×2 (10:01→17:17)
[2019-04-23] MEDS ORDERED: DEXTROSE 5%-WATER - 50 ML IVPB ONE ×2 (10:01→17:17)
--- NOTE | 2019-04-23 12:22 | PN ---
Progress Note (short form) - Note Progress Note: Pt seen today. No active cardiac issues. Discussed with her at length in regards to her inability to care for her condition at home by herself. She understands and agrees to go to [facility] at least for short term care and if she cannot return home after that she will accept that.
--- NOTE | 2019-04-23 15:29 | PN ---
Progress Note, Physician History of Present Illness: AWAKE IN BED CONFUSED NO C/O LEG PAIN AFEBRILE WBC WNL WOUND C/S MSSA - Current Medication List Current Medications: Active Medications Acetaminophen (Tylenol -) 650 mg PO Q6HPO STEPHANY Last Admin: 04/23/19 12:47 Dose: 650 mg Cefazolin Sodium 1 gm/ (Dextrose) 50 mls @ 100 mls/hr IVPB Q8H-IV STEPHANY Last Admin: 04/23/19 10:08 Dose: 100 mls/hr Quetiapine Fumarate (Seroquel -) 12.5 mg PO HS PRN PRN Reason: AGITATION - Objective Vital Signs: Vital Signs Temperature 98.9 F 04/23/19 10:07 Pulse Rate 72 04/23/19 10:07 Respiratory Rate 18 04/23/19 10:07 Blood Pressure 139/60 04/23/19 10:07 O2 Sat by Pulse Oximetry (%) 96 04/23/19 09:00 Constitutional: Yes: No Distress Eyes: Yes: Conjunctiva Clear Cardiovascular: Yes: Regular Rate and Rhythm, S1, S2 Respiratory: Yes: CTA Bilaterally Gastrointestinal: Yes: Normal Bowel Sounds, Soft. No: Tenderness Extremities: Yes: Other (ERYTHEMA LE NEARLY RESOLVED) Edema: Yes Labs: CBC, BMP 04/21/19 06:07 04/21/19 06:07 INR, PTT INR 1.08 (0.83-1.09) 04/20/19 15:03 Assessment/Plan B/L LE CELLULITIS IMPROVED LEUKOCYTOSIS IMPROVED OBS SUBSTITUTE KEFLEX 500MG PO BID 7D
[2019-04-24] MEDS ORDERED: ceFAZolin SODIUM 1 GM VIAL ONE ×3 (00:15→17:17)
[2019-04-24] MEDS ORDERED: DEXTROSE 5%-WATER - 50 ML IVPB ONE ×3 (00:15→17:17)
[2019-04-24] MEDS: ACETAMINOPHEN 325 MG TABLET (FP) PO SCH ×4 (00:24→17:20)
[2019-04-24] MEDS: QUEtiapine FUMARATE 25 MG TABLET (FP) PO PRN (00:24)
[2019-04-24] MEDS: CEFAZOLIN 1 GM in DEXTROSE 5%-WATER - 50 ML IVPB SCH ×3 (02:28→17:20)
[2019-04-24 08:44] LABS: ALBUMIN 2.9 g/dl (3.4-5.0); BILIRUBIN,TOTAL 0.4 mg/dL (0.2-1); BLOOD UREA NITROGEN 10.3 mg/dL (7-18); CALCIUM 8.5 mg/dL (8.5-10.1); CREATININE 0.8 mg/dL (0.55-1.3); POTASSIUM 3.8 mmol/L (3.5-5.1); TOT PROT 5.7 g/dl (6.4-8.2)
[2019-04-24 08:52] LABS: BASO % 0.6 % (0-2.0); EOS % 2.6 % (0-4.5); HEMATOCRIT 36.2 % (32.4-45.2); HEMOGLOBIN 12.1 GM/dL (10.7-15.3); LYMPH % 15.4 % (8-40); MCH 29.9 pg (25.7-33.7); MCHC 33.5 g/dl (32.0-36.0); MEAN CELL VOLUME 89.4 fl (80-96); MEAN PLT VOLUME 9.3 fl (7.5-11.1); NEUT % 76.4 % (42.8-82.8); PLATELET COUNT 278 K/MM3 (134-434); RBC 4.05 M/mm3 (3.60-5.2); WHITE BLOOD COUNT 7.3 K/mm3 (4.0-10.0)
[2019-04-24] MEDS ORDERED: PT OWN MED DRAWER 7, Y5N ONE (10:22)
--- NOTE | 2019-04-24 19:08 | PN ---
Progress Note, Physician Chief Complaint: No new complaints - Current Medication List Current Medications: Active Medications Acetaminophen (Tylenol -) 650 mg PO Q6HPO STEPHANY Last Admin: 04/24/19 17:20 Dose: 650 mg Cefazolin Sodium 1 gm/ (Dextrose) 50 mls @ 100 mls/hr IVPB Q8H-IV STEPHANY Last Admin: 04/24/19 17:20 Dose: 100 mls/hr Quetiapine Fumarate (Seroquel -) 12.5 mg PO HS PRN PRN Reason: AGITATION Last Admin: 04/24/19 00:24 Dose: 12.5 mg - Objective Vital Signs: Vital Signs Temperature 98.3 F 04/24/19 16:30 Pulse Rate 71 04/24/19 16:30 Respiratory Rate 18 04/24/19 16:30 Blood Pressure 150/77 04/24/19 16:30 O2 Sat by Pulse Oximetry (%) 97 04/23/19 21:00 Constitutional: Yes: No Distress Neck: Yes: Supple Cardiovascular: Yes: Regular Rate and Rhythm, S1, S2 Respiratory: Yes: CTA Bilaterally Gastrointestinal: Yes: Normal Bowel Sounds, Soft Neurological: Yes: Alert. No: Loss of Sensation Labs: CBC, BMP 04/24/19 07:32 04/24/19 07:22 INR, PTT INR 1.08 (0.83-1.09) 04/20/19 15:03 Problem List - Problems (1) Cellulitis Assessment/Plan: On oral Keflex, STR when stable. Discussed with daughter. Code(s): L03.90 - CELLULITIS, UNSPECIFIED Qualifiers: Site of cellulitis: extremity Site of cellulitis of extremity: lower extremity Laterality: unspecified laterality Qualified Code(s): L03.119 - Cellulitis of unspecified part of limb (2) Rectal bleed Assessment/Plan: Surgical follow up for rectal prolapse. Code(s): K62.5 - HEMORRHAGE OF ANUS AND RECTUM
[2019-04-24] MEDS ORDERED: LORazepam 2 MG/ML SDV VIAL IVPUSH ONE (22:44)
[2019-04-24] MEDS ORDERED: LORazepam 2 MG/ML SDV VIAL ONE (22:47)
--- NOTE | 2019-04-24 22:57 | PN ---
Progress Note (short form) - Note Progress Note: Called to bedside 10:40 pm. Patient had manually prolapsed her rectum in effort to reduce discomfort. BP 148/82, HR 93. Bedside maneuvers failed to reduce prolapse before and after administration of Ativan. produce clerk surgeon was contacted. Ordered coags, type and screen.
[2019-04-25] MEDS ORDERED: ceFAZolin SODIUM 1 GM VIAL ONE ×3 (01:55→17:55)
[2019-04-25] MEDS ORDERED: DEXTROSE 5%-WATER - 50 ML IVPB ONE ×3 (01:56→17:56)
[2019-04-25] MEDS: ACETAMINOPHEN 325 MG TABLET (FP) PO SCH ×4 (02:10→18:04)
[2019-04-25] MEDS: CEFAZOLIN 1 GM in DEXTROSE 5%-WATER - 50 ML IVPB SCH ×3 (02:11→18:04)
--- NOTE | 2019-04-25 18:11 | PN ---
Progress Note, Physician Chief Complaint: Prolapse overnight, non reducible - Current Medication List Current Medications: Active Medications Acetaminophen (Tylenol -) 650 mg PO Q6HPO STEPHANY Last Admin: 04/25/19 11:03 Dose: 650 mg Cefazolin Sodium 1 gm/ (Dextrose) 50 mls @ 100 mls/hr IVPB Q8H-IV STEPHANY Last Admin: 04/25/19 11:02 Dose: 100 mls/hr Quetiapine Fumarate (Seroquel -) 12.5 mg PO HS PRN PRN Reason: AGITATION Last Admin: 04/24/19 00:24 Dose: 12.5 mg - Objective Vital Signs: Vital Signs Temperature 98.1 F 04/25/19 16:40 Pulse Rate 81 04/25/19 16:40 Respiratory Rate 18 04/25/19 16:40 Blood Pressure 129/77 04/25/19 16:40 O2 Sat by Pulse Oximetry (%) 95 04/24/19 21:00 Constitutional: Yes: No Distress Neck: Yes: Supple Cardiovascular: Yes: Regular Rate and Rhythm, S1, S2 Respiratory: Yes: CTA Bilaterally Neurological: Yes: Alert, Oriented. No: Loss of Sensation Labs: CBC, BMP 04/24/19 07:32 04/24/19 07:22 INR, PTT INR 1.08 (0.83-1.09) 04/20/19 15:03 Problem List - Problems (1) Cellulitis Assessment/Plan: Oral Keflex, STR when stable. Code(s): L03.90 - CELLULITIS, UNSPECIFIED Qualifiers: Site of cellulitis: extremity Site of cellulitis of extremity: lower extremity Laterality: unspecified laterality Qualified Code(s): L03.119 - Cellulitis of unspecified part of limb (2) Rectal bleed Assessment/Plan: Surgical follow up Code(s): K62.5 - HEMORRHAGE OF ANUS AND RECTUM
[2019-04-26] MEDS ORDERED: DEXTROSE 5%-WATER - 50 ML IVPB ONE (00:01)
[2019-04-26] MEDS ORDERED: ceFAZolin SODIUM 1 GM VIAL ONE (00:01)
[2019-04-26] MEDS: ACETAMINOPHEN 325 MG TABLET (FP) PO SCH ×2 (00:54→06:21)
[2019-04-26] MEDS: CEFAZOLIN 1 GM in DEXTROSE 5%-WATER - 50 ML IVPB SCH (00:58)
--- NOTE | 2019-04-26 08:35 | PN ---
Progress Note (short form) - Note Progress Note: rectal prolapse recurrent despite several reductions CBC, BMP 04/24/19 07:32 04/24/19 07:22 Vital Signs Period Temp Pulse Resp BP Sys/Qureshi Pulse Ox Last 24 Hr 98.1 F-99.0 F 72-89 18-20 124-155/69-96 93 s1s2 rrr lungs cta abd soft NT large rectal prolapse at leats 10 to 15 cm with bloody smear on diaper, red legs decreased edema, slight warmth and couple skin opening awake, alert, oriented x3 anxious to repair prolapse imp 83 yo lady with PMH of chronic diastolic CHF, orthostatic hypotension, venous insuff. now with -rectal prolapse -mild acute kidney injury corrected with iv -lower ext cellulitis -deemed competent by both psychiatry and neurology plan -surgical transfer to [facility] for definite surgical repair of rectal prolapse -complete oral keflex for 4 more days for leg cellulitis PT DVT prophylaxis
[2019-04-26 09:19] VITALS: BP 145/68; PULSE 79; TEMP 98.2
[2019-04-26] MEDS ORDERED: POLYETHYLENE GLYCOL 3350 119 GM BTL PO SCH (10:00)
[2019-04-26] MEDS ORDERED: CEPHALEXIN MONOHYDRATE 500 MG CAPSULE (UD) PO SCH (10:00)
--- NOTE | 2019-04-27 09:53 | DS ---
Physical Examination Vital Signs: Vital Signs Temperature 98.2 F 04/26/19 09:16 Pulse Rate 79 04/26/19 09:16 Respiratory Rate 20 04/26/19 09:16 Blood Pressure 145/68 04/26/19 09:16 O2 Sat by Pulse Oximetry (%) 97 04/26/19 09:00 Constitutional: Yes: Well Nourished, Calm, Poor Hygeine Eyes: Yes: Conjunctiva Clear, EOM Intact HENT: Yes: Normocephalic Neck: Yes: Trachea Midline Cardiovascular: Yes: Regular Rate and Rhythm Respiratory: Yes: CTA Bilaterally Gastrointestinal: Yes: Normal Bowel Sounds, Soft ...Rectal Exam: Yes: Other (large non-reducible rectal prolapse) Musculoskeletal: Yes: WNL Extremities: Yes: Other (chr venous stasis, decreased erythema, scabbed over skin openings) Edema: LLE: 1+, RLE: 1+ Peripheral Pulses WNL: Yes Neurological: Yes: WNL (very hard of hearing) Labs: CBC, BMP 04/24/19 07:32 04/24/19 07:22 Discharge Summary Reason For Visit: DEHYDRATION Hospital Course: 83 yo lady with PMH of chronic diastolic CHF, orthostatic hypotension, venous insuff. admitted for -rectal prolapse -mild acute kidney injury corrected with iv -lower ext cellulitis better with cefazolin -deemed competent by both psychiatry and neurology pt was transferred to [facility] for definite surgical repair of rectal prolapse -complete oral keflex for 4 more days for leg cellulitis Condition: Fair - Instructions Disposition: TRANSFER ACUTE CARE/OTHER HOSP - Home Medications Comprehensive Discharge Medication List: Ambulatory Orders Hydrochlorothiazide 25 mg PO DAILY 10/20/16 Ammonium Lactate Lotion [Lac-Hydrin 12] 1 applic TP DAILY #1 bottle 12/05/18
== END 2019-04-26 12:30 | disposition short-term general hospital (02) | DRG 394 ==
LOC: JER 14:20 → JERBED 17:29 → J8W 17:59 → JERBED 18:01 → J8W 19:16
PROVIDERS: ADMIT Internal Medicine; ATTEND Internal Medicine
DX: K62.3 Rectal prolapse (principal); L03.115 Cellulitis of right lower limb; K62.5 Hemorrhage of anus and rectum; N17.9 Acute kidney failure, unspecified; L03.116 Cellulitis of left lower limb; I50.32 Chronic diastolic (congestive) heart failure; R62.7 Adult failure to thrive; G30.9 Alzheimer's disease, unspecified; F02.80 Dementia in other diseases classified elsewhere, unspecified severity, without behavioral disturbance, psychotic disturbance, mood disturbance, and anxiety; E86.0 Dehydration; I87.2 Venous insufficiency (chronic) (peripheral); D72.829 Elevated white blood cell count, unspecified; G62.9 Polyneuropathy, unspecified; I95.1 Orthostatic hypotension; I11.0 Hypertensive heart disease with heart failure
CPT/HCPCS: 36415; 70450-TC; 71045-TC-FY; 80048; 80053; 81003; 82607; 82962; 83605; 83735; 83880; 84436; 84443; 84484; 85025; 85610; 85651; 85730; 86140; 86593; 87040; 87070; 87086; 87186; 87205; 93005; 93010; 93970-TC; 97116-GP; 99284-25; J7030

== ENCOUNTER 2019-05-28 19:35 | Emergency (ER) | payer OTHER, BC ==
--- NOTE | 2019-05-28 19:53 | PDOC ---
History of Present Illness - General Stated Complaint: ALTERED MENTAL STATUS Time Seen by Provider: 05/28/19 19:52 Past History - Past Medical History Allergies/Adverse Reactions: Allergies Allergy/AdvReac Type Severity Reaction Status Date / Time No Known Allergies Allergy Verified 04/20/19 14:28 Home Medications: Ambulatory Orders Hydrochlorothiazide 25 mg PO DAILY 10/20/16 Ammonium Lactate Lotion [Lac-Hydrin 12] 1 applic TP DAILY #1 bottle 12/05/18 Anemia: No Asthma: No CVA: No COPD: No CHF: No Dementia: No Diabetes: No Disorders: No HTN: Yes (believe on a diuretic combination antihypertensive) Hypercholesterolemia: No Liver Disease: No Seizures: No - Immunization History Immunization Up to Date: Yes - Suicide/Smoking/Psychosocial Hx Smoking History: Never smoked Have you smoked in the past 12 months: No Cigars Per Day: 0 Hx Alcohol Use: No Drug/Substance Use Hx: No Substance Use Type: None Hx Substance Use Treatment: No Medical Decision Making - Medical Decision Making 83yo F 05/28/19 19:53
[2019-05-28 20:09] VITALS: TEMP 99.3; BMI 29.2
--- NOTE | 2019-05-28 20:20 | PDOC ---
History of Present Illness - General Stated Complaint: ALTERED MENTAL STATUS Time Seen by Provider: 05/28/19 19:52 History Source: Patient, EMS Exam Limitations: Dementia - History of Present Illness Initial Comments: 05/28/19 20:05 83 YOF with h/o dementia, HTN, LE cellulitis, orthostatic Hypotention, PVD with venous stasis ulcers, and rectal prolapse (possibly s/p recent surgical repair at [facility]), current [facility] patient, who was BIBEMS after being found walking on the street and acting altered. EMS states that the PD had confronted the patient because she was walking to the confucianism on the corner and stating she needed to see the manager pulmonary, but then was stating that every car passing by was the manager pulmonary. She went up to a family driving in their car on the street and asked them to bring her home. PCP: Eve Greer. The patient herself is alert and oriented to self and date and place, but not to her age or to the year. Her only complaint is "being here and not at home" and hoarse voice which she cannot specify as acute or chronic. 05/28/19 20:22 On discussion with the patient's sister, she notes that the patient left [facility] herself and went back to her home to continue living alone. At about 3: 30 pm today, family came over see the patient (including the patient's sister) and found her upset and agitated. The sister explains that the patient accused them of trying to take her money and then left the facility with her walker, walking down the middle of the street stating that she was going to the bank. The sister is not clear about what happened after this time. 05/28/19 20:35 I spoke with the nursing educator at [facility]. The patient had been admitted to [facility] on 05/06/19 directly from [facility] where she had a procedure to correct rectal prolapse. She was there not only for rehab but for confusion c/f inability to care for herself. She had left [facility] with her brother on 05/26/19 to go back home. Referral had been made to [facility]PS. The patient has an emergency contact - a niece at [phone]. Past History - Past Medical History Allergies/Adverse Reactions: Allergies Allergy/AdvReac Type Severity Reaction Status Date / Time No Known Allergies Allergy Verified 04/20/19 14:28 Home Medications: Ambulatory Orders Hydrochlorothiazide 25 mg PO DAILY 10/20/16 Ammonium Lactate Lotion [Lac-Hydrin 12] 1 applic TP DAILY #1 bottle 12/05/18 Anemia: No Asthma: No CVA: No COPD: No CHF: No Dementia: No Diabetes: No Disorders: No HTN: Yes (believe on a diuretic combination antihypertensive) Hypercholesterolemia: No Liver Disease: No Seizures: No - Immunization History Immunization Up to Date: Yes - Suicide/Smoking/Psychosocial Hx Smoking History: Never smoked Have you smoked in the past 12 months: No Cigars Per Day: 0 Hx Alcohol Use: No Drug/Substance Use Hx: No Substance Use Type: None Hx Substance Use Treatment: No Review of Systems - Review of Systems Able to Perform ROS?: No (dementia) *Physical Exam - Vital Signs 05/28/19 21:33 Initial Vital Signs Temp Pulse Resp BP Pulse Ox 99.3 F 56 L 20 107/64 98 05/28/19 20:00 05/28/19 20:00 05/28/19 20:00 05/28/19 20:00 05/28/19 20:00 - Physical Exam Comments: 05/28/19 21:33 GENERAL: nontoxic and well-appearing elderly female who is frustrated, hard of hearing, wearing sunglasses, A/O to name/birthdate/place but not date, hoarse voice, answers questions appropriately HEENT: PERRLA, EOMI, moist mucous membranes NECK/BACK: no midline ttp, no spinal stepoff or deformity, no hematoma, full ROM , neck supple CARDIOVASCULAR: regular rate/rhythm, normal S1S2, no MGR, strong peripheral pulses, capillary refill <2 seconds, extremities wwp, bilateral pedal edema LUNGS/RESPIRATORY: no respiratory distress, CTAB GI/ABDOMEN: symmetric [id number], normoactive BS, soft, no ttp, no midline pulsatile masses : no CVA tenderness EXTREMITIES: no muscle atrophy, no acute deformity SKIN: warm and dry, no pallor, no jaundice, no rash, no bruising, no skin breakdown, no cuts, no lesions NEUROLOGICAL: GCS 15, CN II-XII grossly intact, 5/5 strength proximally and distally, no facial droop ED Treatment Course - LABORATORY CBC & Chemistry Diagram: 05/28/19 20:49 05/28/19 20:49 Medical Decision Making - Medical Decision Making 05/28/19 21:00 Elderly female Pt BIBEMS altered wandering in the middle of the street in hot weather. Initial Vital Signs Temp Pulse Resp BP Pulse Ox 99.3 F 56 L 20 107/64 98 05/28/19 20:00 05/28/19 20:00 05/28/19 20:00 05/28/19 20:00 05/28/19 20:00 Exam: As noted in Physical Exam section. DDX IBNLT: Most likely AMS d/t progression of her dementia/chronic psychiatric state (e.g. delirium, dementia, psychosis), also possibly VS abnormalities ( e.g. fever, hypertensive emergency), toxic-metabolic (e.g. medications, drugs e.g. serotonin syndrome/neuroleptic malignant syndrome or street drugs, electrolytes, hypothyroid, B12 deficiency), worsened by structural (e.g. epilepsy, brain tumor, CVA/TIA, NPH, CJD, ACS, PE, Dio disease), infectious ( e.g. UTI, PNA, bronchitis, cellulitis, meningitis, neurosyphilis, HIV- associated dementia), W/U ordered: Labs as noted below, HCT, CXR, EKG TX ordered: IVF EKG: Reviewed; results as noted in ECG Review section. Laboratory Tests 05/28/19 05/28/19 05/28/19 20:40 20:49 20:49 WBC 9.2 RBC 3.94 Hgb 11.8 Hct 35.9 MCV 91.0 MCH 29.8 MCHC 32.8 RDW 14.9 Plt Count 318 MPV 8.6 Absolute Neuts (auto) 6.4 Neutrophils % 69.2 Lymphocytes % 20.5 D Monocytes % 8.0 Eosinophils % 1.2 Basophils % 1.1 Nucleated RBC % 0 PT with INR INR Sodium Potassium Chloride Carbon Dioxide Anion Gap BUN Creatinine Est GFR (CKD-EPI)AfAm Est GFR (CKD-EPI)NonAf Random Glucose Lactic Acid 1.4 Calcium Total Bilirubin AST ALT Alkaline Phosphatase Creatine Kinase 146 Troponin I < 0.02 Total Protein Albumin 05/28/19 05/28/19 20:49 20:49 WBC RBC Hgb Hct MCV MCH MCHC RDW Plt Count MPV Absolute Neuts (auto) Neutrophils % Lymphocytes % Monocytes % Eosinophils % Basophils % Nucleated RBC % PT with INR 13.20 H INR 1.12 H Sodium 147 H Potassium 3.3 L Chloride 111 H Carbon Dioxide 28 Anion Gap 9 BUN 20.6 H Creatinine 1.0 Est GFR (CKD-EPI)AfAm 59.49 Est GFR (CKD-EPI)NonAf 51.33 Random Glucose 97 Lactic Acid Calcium 8.8 Total Bilirubin 0.5 AST 11 L ALT 10 L Alkaline Phosphatase 114 Creatine Kinase Troponin I Total Protein 6.7 Albumin 3.4 05/28/19 21:51 Call placed to the patient's niece's daughter who states the patient does not have a brother. Call subsequently placed to the patient's sister Delia and goes to voicemail. Voicemail is left requesting call back to the ED. 05/28/19 22:20 I spoke with the patient's niece who called back. The patient's niece states no family member will be able to pick her up. 05/28/19 22:52 The patient has found her keys and shows us at this time. She is adamant about going home, she is of sound mind, has capacity to decide for herself. We have thorough discussion with her to ensure safe discharge home. Taxi is called and patient is discharged with clear instructions to go home. Family stated to us that they will be able to check on her in the explosive specialist *DC/Admit/Observation/Transfer Diagnosis at time of Disposition: Hypokalemia, Agitation - Discharge Dispostion Disposition: HOME Condition at time of disposition: Stable Decision to Admit order: No - Referrals - Patient Instructions Additional Instructions: You were seen in the ER after being found by the ambulance walking on the street in the heat of the day. They were concerned for you and your family initially was too. Your blood labs were essentially normal and just showed slightly low potassium, so we gave you a supplement and some IV fluids. You had your apartment keys with you and you were adamant that you did not want to stay in the hospital. We called you a taxi cab because you cannot walk home in the middle of the night, even though it is a few blocks away. Please take the taxi home. Your family stated they will come check on you in the morning. If you have any new or worsening symptoms, come back to the ER immediately (call 911 to be driven here). Follow up with your primary doctor CHRISTINA (on Friday at the latest). - Post Discharge Activity
[2019-05-28] MEDS ORDERED: SODIUM CHLORIDE 0.9% 500 ML INFUS.BAG IV ONE (20:22)
[2019-05-28 20:52] LABS: BASO % 1.1 % (0-2.0); EOS % 1.2 % (0-4.5); HEMATOCRIT 35.9 % (32.4-45.2); HEMOGLOBIN 11.8 GM/dL (10.7-15.3); LYMPH % 20.5 % (8-40); MCH 29.8 pg (25.7-33.7); MCHC 32.8 g/dl (32.0-36.0); MEAN PLT VOLUME 8.6 fl (7.5-11.1); NEUT % 69.2 % (42.8-82.8); PLATELET COUNT 318 K/MM3 (134-434); RBC 3.94 M/mm3 (3.60-5.2); RDW 14.9 % (11.6-15.6); WHITE BLOOD COUNT 9.2 K/mm3 (4.0-10.0)
[2019-05-28 21:10] LABS: INR 1.12 (0.83-1.09); PROTHROMBIN TIME (PATIENT) 13.2 SEC (9.7-13.0)
[2019-05-28 21:26] LABS: ALBUMIN 3.4 g/dl (3.4-5.0); BILIRUBIN,TOTAL 0.5 mg/dL (0.2-1); BLOOD UREA NITROGEN 20.6 mg/dL (7-18); CALCIUM 8.8 mg/dL (8.5-10.1); POTASSIUM 3.3 mmol/L (3.5-5.1); TOT PROT 6.7 g/dl (6.4-8.2)
[2019-05-28] MEDS ORDERED: MAGNESIUM SULF 50% (8.12 MEQ/2 ML-1 GM VIAL) IVPB ONE (21:30)
[2019-05-28] MEDS ORDERED: POTASSIUM CHLORIDE TABS 20 MEQ TABLET.ER (FP) PO ONE ×2 (21:30→21:33)
[2019-05-28] MEDS ORDERED: MAGNESIUM 1GM/D5W - 2 GM/200 ML IVPB IVPB ONE (21:33)
[2019-05-28 23:12] VITALS: BP 131/70; PULSE 70
--- NOTE | 2019-05-29 05:58 | PDOC ---
Documentation entered by Adriana Cat SCRIBE, acting as scribe for Deb Thomas MD. Deb Thomas MD: This documentation has been prepared by the Stephania ortiz Brenda, SCRIBE, under my direction and personally reviewed by me in its entirety. I confirm that the documentation accurately reflects all work, treatment, procedures, and medical decision making performed by me. Attending Attestation - Resident Resident Name: Diana Yin - ED Attending Attestation I have performed the following: I have examined & evaluated the patient, The case was reviewed & discussed with the resident, I agree w/resident's findings & plan, Exceptions are as noted - HPI HPI: 05/28/19 20:46 The patient is an 83 year old female, hard of hearing, with a significant PMH of HTN, dementia, venous stasis, cellulitis and poor self care, who presents to the emergency department [facility] with altered mental status. As per EMS, the patient was found wandering in the streets, by police officers, stopping in front of cars. By phone, family states that she left her home after accusing family of theft around 3:30pm, and tried to walk over to her nearby jainism. At which time, she was found in the streets by the police officers, outside of her jainism, who then called EMS. As per [facility], she AMAd 2 days ago , in the care of her brother. The patient denies chest pain, shortness of breath, headache and dizziness. Denies fever, chills, nausea, vomiting, diarrhea and constipation. Denies dysuria, frequency, urgency and hematuria. Allergies: NKA Social history: Denies any tobacco, alcohol or drug use. PCP: Eve Greer Cards: Dr. Waters - Physicial Exam PE: 05/28/19 20:46 GENERAL: Afebrile. Awake, alert, and fully oriented, in no acute distress HEAD: No signs of trauma EYES: PERRLA, EOMI, sclera anicteric, conjunctiva clear ENT: Auricles normal inspection, hearing grossly normal, nares patent, oropharynx clear without exudates. Moist mucosa NECK: Normal ROM, supple, no lymphadenopathy, JVD, or masses LUNGS: Breath sounds equal, clear to auscultation bilaterally. No wheezes, and no crackles HEART: Regular rate and rhythm, normal S1 and S2, no murmurs, rubs or gallops ABDOMEN: Soft, nontender, normoactive bowel sounds. No guarding, no rebound. No masses. No CVA tenderness. EXTREMITIES: +Lower extremity bilateral pitting edema. Normal range of motion. No clubbing or cyanosis. No cords, erythema. NEUROLOGICAL: Cranial nerves II through XII grossly intact. Normal speech, normal gait SKIN: Warm, Dry, normal turgor, no rashes or lesions noted. - Medical Decision Making 05/28/19 22:55 Pt is alert and making sense and we have spoken multiple times to her family, we spoke to her PMD Maxine and we spoke to the NH from where she checked herself out recently. Pt has normal labs and she has normal exam. She has pitting edema of legs, but that is her usual. Pt has normal EKG and she was gently hydrated and given potassium and mag supplementation in the ER. She is feeling better. After discussion with family, we have agreed to discharge the patient home. Heart Score/ECG Review - ECG Intrepretation Rhythm: Regular Rhythm - [place]: Normal - P and ND Prominent R with upright T in V1 (true posterior CO): No Delta Wave(s) Present: No WPW: No - QRS Poor R Wave Progression: No Q Wave Present: No - ST and T Early Repolarization: No Non Specific ST-T Wave changes: No Flattened T Waves: No Prolonged Q-T Interval: No - ECG Impressions Normal ECG: Yes Non-specific ST Elevation: No Ischemic Changes: No Bradycardia: No Torsades micha Pointes: No WPW: No
== END 2019-05-28 23:16 | disposition home or self-care (01) ==
LOC: JER 19:35
PROC: 3E033GC Introduction of Other Therapeutic Substance into Peripheral Vein, Percutaneous Approach (ICD-10-PCS; principal; 2019-05-28)
PROC: 3E0337Z Introduction of Electrolytic and Water Balance Substance into Peripheral Vein, Percutaneous Approach (ICD-10-PCS; 2019-05-28)
DX: I10 Essential (primary) hypertension (principal)
CPT/HCPCS: 36415; 80053; 82550; 83605; 84484; 85025; 85610; 96361; 96374; 99282-25

== ENCOUNTER 2019-12-02 11:41 | Inpatient (IN) | payer OTHER, BC ==
[2019-12-02] MEDS ORDERED: SODIUM CHLORIDE 0.9% 500 ML INFUS.BAG IV ONE (12:31)
--- NOTE | 2019-12-02 12:49 | PDOC ---
History of Present Illness <TraceyBrittnyjamel Alas - Last Filed: 12/02/19 14:54> - History of Present Illness Initial Comments: Diana Espinoza is an 84yo woman with a PMH of dementia, HTN, LE cellulitis, orthostatsis, PVD w/ venous stasis ulcers, rectal prolapse s/p surgical repair ( 2019) who was brought to the ED by her neighbor and cosmetic account coordinator for AMS and inability to care for herself. According to the neighbor, Ms Espinoza lives in an apartment by herself without running water or heat. The neighbors bring her food daily. She was last seen on Friday evening, and they found her at home today, altered from baseline, and brought her for evaluation. On arrival to the ED, the patient is noted to be somnolent but arousable and does not answer questions, though her neighbor reports that she is very hard of hearing. The neighbor and cosmetic account coordinator report that she was in [place] last year temporarily but left after several weeks; she was then found at home later that day confused and agitated. They additionally report that the pt has had longstanding leg swelling, and they are not sure she is able to take any of her medications or care for the legs at all, though she does walk to [place] every week (1/2 mile) and has not had any apparent difficulty with ambulation. They are otherwise unaware of any recent complaints or changes to her health. <Sara Santos - Last Filed: 12/02/19 20:59> - General Chief Complaint: Edema Stated Complaint: EDEMA IN BOTH LEGS Time Seen by Provider: 12/02/19 12:06 Past History <Brittny Webb - Last Filed: 12/02/19 14:54> - Past Medical History Anemia: No Asthma: No CVA: No COPD: No CHF: No Dementia: No Diabetes: No Disorders: No HTN: Yes (believe on a diuretic combination antihypertensive) Hypercholesterolemia: No Liver Disease: No Seizures: No - Immunization History Immunization Up to Date: Yes - Psycho Social/Smoking Cessation Hx Smoking History: Smoker current status UNK Have you smoked in the past 12 months: No Cigars Per Day: 0 Information on smoking cessation initiated: No Hx Alcohol Use: No Drug/Substance Use Hx: No Substance Use Type: None Hx Substance Use Treatment: No <Sara Santos - Last Filed: 12/02/19 20:59> - Past Medical History Allergies/Adverse Reactions: Allergies Allergy/AdvReac Type Severity Reaction Status Date / Time No Known Allergies Allergy Verified 12/02/19 11:51 Home Medications: Ambulatory Orders Hydrochlorothiazide 25 mg PO DAILY 10/20/16 Ammonium Lactate Lotion [Lac-Hydrin 12] 1 applic TP DAILY #1 bottle 12/05/18 Review of Systems - Review of Systems Comments:: Could not obtain secondary to AMS <Sara Santos - Last Filed: 12/02/19 20:59> *Physical Exam - Vital Signs Last Vital Signs Temp Pulse Resp BP Pulse Ox 88.8 F L 51 L 18 127/75 100 12/02/19 14:29 12/02/19 14:29 12/02/19 14:29 12/02/19 14:29 12/02/19 14:29 <Brittny Webb - Last Filed: 12/02/19 14:54> - Vital Signs Last Vital Signs Temp Pulse Resp BP Pulse Ox 97.8 F 49 L 20 162/66 100 12/02/19 11:51 12/02/19 11:51 12/02/19 11:51 12/02/19 11:51 12/02/19 11:51 - Physical Exam General: Unkempt, hair matted. Clothing and slippers stiff, crusted w/ pus. Skin cool to touch HEENT: Atraumatic. Very poor dentition. Mouth/lips dry and cracked. PERRL, EOMI Cards: Markedly bradycardic. Regular, no murmur appreciated Pulm: Breathing comfortably on 2L by NC. No wheezing or crackles appreciated Abd: Soft, nontender, nondistended : Normal external genitalia. Rectal: Normal tone, no blood noted, no perianal lesions Ext: BLE with 4+ pitting edema, erythema. Circumferential scattered crusting lesions w/ oozing pus, pants adhered to lesions. Depth indeterminate due to thick crusting and purulent discharge. No bleeding wounds. Vasc: Extremities cool. Pedal pulses nonpalpable secondary to edema Skin: Purulent lesions on BLE as above. Feet macerated and tender to touch Neuro: Somnolent but arousable. Does not answer questions or follow commands. Moves all extremities, withdraws to stimuli in BUE and BLE <Sara Santos - Last Filed: 12/02/19 20:59> ED Treatment Course - LABORATORY CBC & Chemistry Diagram: 12/02/19 12:46 12/02/19 12:46 - ADDITIONAL ORDERS Additional order review: Laboratory Results 12/02/19 12/02/19 12/02/19 12:59 12:46 12:46 PT with INR INR PTT (Actin FS) VBG pH 7.34 POC VBG pCO2 55.6 H POC VBG pO2 < 49 H VBG HCO3 29.8 H VBG O2 Sat (Yann) 64.5 L VBG Base Excess 3.4 H Sodium Potassium Chloride Carbon Dioxide Anion Gap BUN Creatinine Est GFR (CKD-EPI)AfAm Est GFR (CKD-EPI)NonAf Random Glucose Lactic Acid 0.6 Calcium Total Bilirubin AST ALT Alkaline Phosphatase Creatine Kinase CK-MB (CK-2) Troponin I Total Protein Albumin Urine Color Yellow Urine Appearance Clear Urine pH 7.0 D Ur Specific [place] 1.013 Urine Protein Negative Urine Glucose (UA) Negative Urine Ketones Trace H Urine Blood Negative Urine Nitrite Negative Urine Bilirubin Negative Urine Urobilinogen 1.0 Ur Leukocyte Esterase Negative 12/02/19 12/02/19 12/02/19 12:46 12:46 12:46 PT with INR 12.90 INR 1.09 PTT (Actin FS) 38.9 H VBG pH POC VBG pCO2 POC VBG pO2 VBG HCO3 VBG O2 Sat (Yann) VBG Base Excess Sodium 145 Potassium 3.8 Chloride 110 H Carbon Dioxide 30 Anion Gap 5 L BUN 12.2 Creatinine 0.6 Est GFR (CKD-EPI)AfAm 95.66 Est GFR (CKD-EPI)NonAf 82.53 Random Glucose 81 Lactic Acid Calcium 9.4 Total Bilirubin 0.4 AST 36 ALT 26 Alkaline Phosphatase 190 H Creatine Kinase 89 CK-MB (CK-2) 16.8 H Troponin I < 0.02 Total Protein 6.3 L Albumin 3.2 L Urine Color Urine Appearance Urine pH Ur Specific [place] Urine Protein Urine Glucose (UA) Urine Ketones Urine Blood Urine Nitrite Urine Bilirubin Urine Urobilinogen Ur Leukocyte Esterase 12/02/19 12:46 RBC 4.40 MCV 90.5 MCHC 32.7 RDW 14.1 MPV 9.0 Neutrophils % 75.3 Lymphocytes % 15.9 D Monocytes % 7.4 Eosinophils % 1.0 Basophils % 0.4 - RADIOLOGY Radiology Studies Ordered: Category Date Time Status HEAD CT WITHOUT CONTRAST [CT] Stat CT Scan 12/02/19 13:53 Completed - Medications Given in the ED: ED Medications Discontinued Medications Generic Name Dose Route Start Last Admin Trade Name Freq PRN Reason Stop Dose Admin Piperacillin Sod/Tazobactam 100 mls @ 200 mls/hr 12/02/19 13:07 12/02/19 13: 22 Sod 4.5 gm/ Dextrose IVPB 12/02/19 13:36 200 mls/hr ONCE ONE Administration Protocol Sodium Chloride 1,000 ml 12/02/19 12:31 12/02/19 13:00 Normal Saline - IV 12/02/19 12:32 1,000 ml ONCE ONE Administration Vancomycin HCl 1,000 mg 12/02/19 13:07 12/02/19 13:22 Vancomycin (Pre-Docked) IVPB 12/02/19 13:08 1,000 mg ONCE ONE Administration Protocol <Brittny Webb - Last Filed: 12/02/19 14:54> - LABORATORY CBC & Chemistry Diagram: 12/02/19 12:46 12/02/19 12:46 - RADIOLOGY Radiology Studies Ordered: Category Date Time Status CHEST X-RAY PORTABLE* [RAD] Stat Radiology 12/02/19 12:29 Ordered <Sara Santos - Last Filed: 12/02/19 20:59> Medical Decision Making - Critical Care Time Total Critical Care Time (minutes): 40 Critical Care Statement: The care of this patient involved high complexity decision making to prevent further life threatening deterioration of the patient 's condition and/or to evaluate & treat vital organ system(s) failure or risk of failure. <Brittny Webb - Last Filed: 12/02/19 14:54> - Critical Care Time Total Critical Care Time (minutes): 45 Critical Care Statement: The care of this patient involved high complexity decision making to prevent further life threatening deterioration of the patient 's condition and/or to evaluate & treat vital organ system(s) failure or risk of failure. - Medical Decision Making 12/02/19 12:42 Diana Espinoza is an 84yo woman with a PMH of dementia, HTN, LE cellulitis, orthostatsis, PVD w/ venous stasis ulcers, rectal prolapse s/p surgical repair ( 2019) who was brought to the ED by her neighbor and cosmetic account coordinator for AMS and inability to care for herself. She reportedly does not have heat or running water at home. Today she was somnolent, which they report is a dramatic change from baseline. - AMS w/ purulent cellulitis. Hypothermia with core temp 89F - Concerning for sepsis secondary to LE cellulitis, possible IL, IHC though no injury appreciated. No focal neuro deficits suggesting stroke but limited exam as pt cannot follow commands. Less likely rhabdo as per neighbor pt is ambulatory and was not found down, but last seen well on Friday - Sepsis workup, CPK, trop - Nely hugger for hypothermia - Bradycardia to 30's, most likely secondary to hypothermia but will place on monitor - IVF for apparent dehydration w/ dry MM - Vanc/zosyn 12/02/19 14:12 - Labs reviewed. No significant abnormalities; CPK 16 but otherwise unremarkable - Temp still 88F. Warming IVF for additional hydration - ICU evaluated pt for admission - CT head ordered for evaluation of AMS, pt to be taken now 12/02/19 14:42 - CT head reviewed, no acute abnormalities appreciated. Radiology repot pending - Sign out given to Dr Ba. Will admit to ICU. Requesting consults for Dr Boswell and Dr Horner, placed 12/02/19 15:26 - Pt's sister, Zahira Cisneros, called ED for an update. Understands that pt likely needs significant assistance w/ ADL's, might need NH placement. Would like to be called w/ updates at [phone]. - CT report available. No gross acute abnormalities noted 12/02/19 17:18 - Haldol given for agitation without improvement. Pt attempting to get out of bed and leave AMA - PMD and pt's front office representative both in the ED, discussed w/ pt that she should stay in the hospital - 50mg IV benadryl given for continued agitation. Pt does not appear to understand that she has an infection nor that she was hypothermic despite repeated attempts to explain, along with assistance from her front office representative. May need restraints. - BP 74/43, improved to 90/70 when pt became agitated. Will continue to monitor. Increased IVF rate to 1000/hr Seen and discussed with Dr Tracey Santos PGY2 <Sara Santos - Last Filed: 12/02/19 20:59> Discharge - Admission Yes <Brittny Webb - Last Filed: 12/02/19 14:54> - Discharge Information Problems reviewed: Yes - Admission Yes <Sara Santos - Last Filed: 12/02/19 20:59> - Discharge Information Clinical Impression/Diagnosis: Bradycardia AMS (altered mental status) Qualifiers: Altered mental status type: somnolence Qualified Code(s): R40.0 - Somnolence Hypothermia Qualifiers: Encounter type: initial encounter Qualified Code(s): T68.XXXA - Hypothermia, initial encounter Lower extremity cellulitis Qualifiers: Laterality: unspecified laterality Qualified Code(s): L03.119 - Cellulitis of unspecified part of limb Condition: Guarded
--- NOTE | 2019-12-02 13:01 | PDOC ---
Attending Attestation - Resident Resident Name: Sara Santos - ED Attending Attestation I have performed the following: I have examined & evaluated the patient, The case was reviewed & discussed with the resident, I agree w/resident's findings & plan - HPI HPI: 12/02/19 13:57 Diana Espinoza is an 84yo woman with a PMH of dementia, HTN, LE cellulitis, orthostatsis, PVD w/ venous stasis ulcers, rectal prolapse s/p surgical repair ( 2018) who was brought to the ED by her neighbor and welder experimental for AMS and inability to care for herself. According to the neighbor, Ms Espinoza lives in an apartment by herself without running water or heat. The neighbors bring her food daily. She was last seen on Friday evening about 2 days ago, today found to be altered. no known trauma or falls, not found on the floor for unknown time. of note, the neighbor and welder experimental report that she was in [place] last year temporarily but left after several weeks; she was then found at home later that day confused and agitated. They additionally report that the pt has had longstanding leg swelling, and they are not sure she is able to take any of her medications or care for the legs at all, though she does walk to [facility] every week (1/2 mile) and has not had any apparent difficulty with ambulation. They are otherwise unaware of any recent complaints or changes to her health. - Physicial Exam PE: 12/02/19 13:56 Agree with the resident's HPI and PE as documented in the electronic medical record. malaised appearing, somnolent but arousable , altered. EOMI, PERRL, nl conjunctiva, anicteric; Very dry mucus membranes, poor dentition. neck supple. lungs clear, +bradycardic, no murmurs. abdomen soft nontender. no rebound, guarding. groin interface with panniculitis. Back nontender. +bilateral peripheral edema with bilateral weeping ulcerations/wounds, +erythema.. normal color for ethnicity, very cool and dry to touch. 12/02/19 13:58 - Critical Care Time Total Critical Care Time: 40 (sepsis, hypothermia) Critical Care Statement: The care of this patient involved high complexity decision making to prevent further life threatening deterioration of the patient 's condition and/or to evaluate & treat vital organ system(s) failure or risk of failure. - Medical Decision Making 12/02/19 13:54 Vital Signs Temp Pulse Resp BP Pulse Ox 88 F L 44 L 9 L 137/82 99 12/02/19 13:22 12/02/19 13:22 12/02/19 13:22 12/02/19 13:22 12/02/19 13:27 vitals notable for hypothermia, normotensive bradycardia likely related to hypothermia paulodanae max ddx dehydration, rhabdomyolysis, infection, anemia, electrolyte abnormalities, metabolic derangements, sepsis, ICH/CVA. lymphedema, wound infection, DVT. hydration, warm fluids LE edema and weeping wounds, IV vancomycin/zosyn for empiric sepsis coverage labs and lytes normal no rhabdo. neg trop, doubt cardiac no acidosis lytes and Cr function normal UA neg for infection, gómez in place to prevent wounds/soiling given AMS hard of hearing, somnolent, but arousable CXR clear, no acute pathology CT head with moderate atrophy periventricular chronic microvascular changes no gross intracranial pathology or bleed. admit to ICU, Dr Vince Alarcon consultation for higher level of care due to severe bradycardia and hypothermia, likely from lack of heat source in the winter, infectious coverage and continued medical management. dx sepsis, hypothermia 12/02/19 14:54 12/02/19 14:54 Heart Score/ECG Review #1 ECG reviewed & interpreted by me at: 12:00 General ECG Interpretation: Sinus Rhythm, Normal Intervals 12/02/19 13:00 EKG sinus bradycardia 50 bpm transfer tech, no interval abnormalities, narrow QRS, ST and T wave segments and morphology normal. Nonspecific T wave abnormalities
[2019-12-02] MEDS ORDERED: VANCOMYCIN 1 GRAM (PRE-DOCKED) 1,000 MG/250 ML BAG IVPB ONE (13:04)
[2019-12-02] MEDS ORDERED: PIPERACILLIN/TAZOB 4.5 GM 4.5 GM/100 ML BAG IVPB ONE (13:04)
[2019-12-02] MEDS ORDERED: PIPERACILLIN/TAZOB 4.5 GM 4.5 GM in DEXTROSE 5%-WATER 100 ML IVPB ONE (13:07)
[2019-12-02] MEDS ORDERED: VANCOMYCIN 1 GM in D5W (PRE-DOCKED) 1,000 MG/250 ML IVPB ONE (13:07)
[2019-12-02 13:11] LABS: VENOUS PC02 55.6 mmHg (38-52); VENOUS PH 7.34 (7.31-7.41); VENOUS PO2 < 49 mmHg (28-48)
[2019-12-02 13:15] LABS: BASO % 0.4 % (0-2.0); HEMATOCRIT 39.8 % (32.4-45.2); LYMPH % 15.9 % (8-40); MCH 29.5 pg (25.7-33.7); MCHC 32.7 g/dl (32.0-36.0); MEAN CELL VOLUME 90.5 fl (80-96); MONO % 7.4 % (3.8-10.2); NEUT % 75.3 % (42.8-82.8); PLATELET COUNT 211 K/MM3 (134-434); RDW 14.1 % (11.6-15.6); WHITE BLOOD COUNT 4.4 K/mm3 (4.0-10.0)
[2019-12-02 13:17] LABS: URINE APPEARANCE CLEAR; URINE BILIRUBIN NEGATIVE (NEGATIVE); URINE COLOR YELLOW; URINE GLUCOSE (UA) NEGATIVE (NEGATIVE); URINE KETONE TRACE (NEGATIVE); URINE LEUK ESTERASE NEGATIVE (NEGATIVE); URINE NITRITE NEGATIVE (NEGATIVE); URINE PROTEIN NEGATIVE (NEGATIVE)
[2019-12-02 13:34] LABS: INR 1.09 (0.83-1.09); PROTHROMBIN TIME (PATIENT) 12.9 SEC (9.7-13.0)
[2019-12-02 13:36] LABS: ACTIVATED PTT 38.9 SECONDS (25.2-36.5)
[2019-12-02 13:49] LABS: ALBUMIN 3.2 g/dl (3.4-5.0); BILIRUBIN,TOTAL 0.4 mg/dL (0.2-1); BLOOD UREA NITROGEN 12.2 mg/dL (7-18); CALCIUM 9.4 mg/dL (8.5-10.1); CREATININE 0.6 mg/dL (0.55-1.3); POTASSIUM 3.8 mmol/L (3.5-5.1); TOT PROT 6.3 g/dl (6.4-8.2)
--- NOTE | 2019-12-02 14:28 | PN ---
Teaching Attending Note Name of Resident: Shira Vazquez ATTENDING PHYSICIAN STATEMENT I saw and evaluated the patient. I reviewed the resident's note and discussed the case with the resident. I agree with the resident's findings and plan as documented. SUBJECTIVE: Pt seen and examined in the ER. Pt brought in by neighbors for altered mental status, found to be hypothermic, bradycardic. Purulent drainage from legs. Pt not answering questions, following commands, unable to obtain further history. OBJECTIVE: Vital Signs Period Temp Pulse Resp BP Sys/Qureshi Pulse Ox Last 24 Hr 88 F-97.8 F 44-50 9-20 137-172/66-82 99-100 Intake & Output 11/29/19 11/30/19 12/01/19 12/02/19 23:59 23:59 23:59 23:59 Intake Total 1250 Output Total 500 Balance 750 Weight 86.183 kg Gen: awake but not answering questions Heart: bradycardic, regular Lung: decreased breath sounds at the bases Abd: soft, nontender Ext: + edema, erythema with purulent drainage CBC, BMP 12/02/19 12:46 12/02/19 12:46 Active Medications Nystatin (Mycostatin Cream -) 1 applic TP Q6HPO STEPHANY ASSESSMENT AND PLAN: Altered Mental Status Cellulitis Sepsis Hypothermia Bradycardia HTN PAD Dementia - IV antibiotics - LE dopplers - surgery eval, may need additional imaging - f/u cultures - warming blanket - IVF - monitor urine output, creatinine - check TFTs, cortisol level - CT head - echocardiogram - trend cardiac enzymes - aspiration precautions - DVT prophylaxis - ICU monitoring for now
[2019-12-02] MEDS: SODIUM CHLORIDE 1,000 ML IV SCH (15:37)
--- NOTE | 2019-12-02 16:08 | CON.CARD ---
Consult Consult Specialty:: Cardiology Reason for Consultation:: bradycardia - History of Present Illness History of Present Illness: 84yo woman with a PMH of dementia, HTN, LE cellulitis venous stasis ulcers, rectal prolapse s/p surgical repair who was brought to the ED by her neighbor and bumper straightener for AMS and inability to care for herself. Was bradycardic and hypothermic. Now with warming blanket and HR improved. BP is stable. Confused and unable to give further history. - Past Medical History PROTEIN CHEMIST: Yes: Dementia Cardio/Vascular: Yes: HTN Dermatology: Yes: Cellulitis - Past Surgical History Past Surgical History: Yes: None. No: Colonoscopy - Alcohol/Substance Use Hx Alcohol Use: No History of Substance Use: reports: None - Smoking History Smoking history: Smoker current status UNK Have you smoked in the past 12 months: No - Social History Usual Living Arrangement: Alone ADL: Independent History of Recent Travel: No Home Medications - Allergies Allergies/Adverse Reactions: Allergies Allergy/AdvReac Type Severity Reaction Status Date / Time No Known Allergies Allergy Verified 12/02/19 11:51 - Home Medications Home Medications: Ambulatory Orders Hydrochlorothiazide 25 mg PO DAILY 10/20/16 Ammonium Lactate Lotion [Lac-Hydrin 12] 1 applic TP DAILY #1 bottle 12/05/18 Review of Systems Unable to obtain ROS, reason: Dementia Vital Signs: Vital Signs Temperature 88.8 F L 12/02/19 14:29 Pulse Rate 51 L 12/02/19 14:29 Respiratory Rate 18 12/02/19 14:29 Blood Pressure 127/75 12/02/19 14:29 O2 Sat by Pulse Oximetry (%) 100 12/02/19 14:29 Constitutional: Yes: Well Nourished, No Distress Eyes: Yes: Conjunctiva Clear HENT: Yes: Atraumatic, Normocephalic Neck: Yes: Supple, Trachea Midline Respiratory: Yes: Regular, CTA Bilaterally Gastrointestinal: Yes: Normal Bowel Sounds, Soft Cardiovascular: Yes: Regular Rate and Rhythm Heart Sounds: Yes: S1, S2 Murmur: Yes: Systolic Murmur (2/6 sys) Edema: Yes Edema: LLE: 2+, RLE: 2+ - Other Data Labs, Other Data: CBC, BMP 12/02/19 12:46 12/02/19 12:46 INR, PTT INR 1.09 (0.83-1.09) 12/02/19 12:46 Troponin, BNP 12/02/19 12:46 Troponin I < 0.02 Troponin, BNP 12/02/19 12:46 Troponin I < 0.02 Sinus bradycardia and Nl axis and interval Problem List - Problems (1) AMS (altered mental status) Code(s): R41.82 - ALTERED MENTAL STATUS, UNSPECIFIED Qualifiers: Altered mental status type: somnolence Qualified Code(s): R40.0 - Somnolence (2) Bradycardia Code(s): R00.1 - BRADYCARDIA, UNSPECIFIED Assessment/Plan 84 yo patient with dementia admitted with AMS and hypothermic/bradycardic. Modest sinus bradycardia without hypotension or heart block is due to hypothermia and will improve with heating. Warming blanket. HR is already normal during this exam Will see as needed.
[2019-12-02] MEDS ORDERED: HALOPERIDOL LACTATE 5 MG/ML IM ONE (16:57)
[2019-12-02] MEDS ORDERED: HALOPERIDOL LACTATE 5 MG/ML ONE (17:02)
--- NOTE | 2019-12-02 17:36 | HP ---
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 adult protective services - Past Medical History DEAN OF FACULTY: Yes: Dementia (?) Cardiovascular: Yes: HTN Dermatology: Yes: Cellulitis - Past Surgical History Past Surgical History: No: Colonoscopy Additional Past Surgical History: rectal prolapse repair 2018 - Smoking History Smoking history: Smoker current status UNK Have you smoked in the past 12 months: No - Alcohol/Substance Use Hx Alcohol Use: No History of Substance Use: reports: None - Social History Usual Living Arrangement: Yes: Alone ADL: Support Services (jonathon jarquin helps her out) History of Recent Travel: No Home Medications - Allergies Allergies/Adverse Reactions: Allergies Allergy/AdvReac Type Severity Reaction Status Date / Time No Known Allergies Allergy Verified 12/02/19 11:51 - Home Medications Home Medications: Ambulatory Orders Hydrochlorothiazide 25 mg PO DAILY 10/20/16 Ammonium Lactate Lotion [Lac-Hydrin 12] 1 applic TP DAILY #1 bottle 12/05/18 Review of Systems Findings/Remarks: patient refuses any complaints, wants to go home Physical Examination Vital Signs: Vital Signs Temperature 93.9 F L 12/02/19 17:26 Pulse Rate 72 12/02/19 17:26 Respiratory Rate 15 12/02/19 17:26 Blood Pressure 94/70 12/02/19 17:26 O2 Sat by Pulse Oximetry (%) 95 12/02/19 17:26 Constitutional: Yes: Poor Hygeine (very poor, matted hair, caked dirt on hands and feet upon arrival oozing lower extremity wounds, stuck to her clothing) HENT: Yes: WNL, Other (very poor hearing) Neck: Yes: WNL Cardiovascular: Yes: Regular Rate and Rhythm Respiratory: Yes: Regular, CTA Bilaterally Gastrointestinal: Yes: Normal Bowel Sounds, Soft Renal/: Yes: WNL Extremities: Yes: Other (chronic edema with open wounds) Edema: Yes Labs: CBC, BMP 12/02/19 12:46 12/02/19 12:46 Problem List - Problems (1) AMS (altered mental status) Code(s): R41.82 - ALTERED MENTAL STATUS, UNSPECIFIED Qualifiers: Altered mental status type: somnolence Qualified Code(s): R40.0 - Somnolence (2) Bradycardia Code(s): R00.1 - BRADYCARDIA, UNSPECIFIED (3) Hypothermia Code(s): T68.XXXA - HYPOTHERMIA, INITIAL ENCOUNTER Qualifiers: Encounter type: initial encounter Qualified Code(s): T68.XXXA - Hypothermia , initial encounter (4) Lower extremity cellulitis Code(s): L03.119 - CELLULITIS OF UNSPECIFIED PART OF LIMB Qualifiers: Laterality: unspecified laterality Qualified Code(s): L03.119 - Cellulitis of unspecified part of limb Assessment/Plan close monitoring iv fluids iv antibiotics for cellulitis will need placement
[2019-12-02] MEDS ORDERED: MINERAL OIL/PETROLAT/WATER TOPICAL CREAM 454 GM JAR TP PRN (19:31)
--- NOTE | 2019-12-02 20:11 | CONSULT ---
Consultation: REQUESTING PROVIDER: Dr. Webb CONSULT REQUEST: We have been asked to medically evaluate this patient for ICU management. HISTORY OF PRESENT ILLNESS: 84F PMH of dementia, HTN, LE cellulitis, orthostasis, venous stasis ulcers, rectal prolapse s/p surgical repair (04/2019) was brought to the ED after being found down in her apartment by her director of enrollment and friend. As per chart review patient was found to be in her apartment without running water or heat. Her neighbors bring her food daily, was last seen at her normal on Friday evening. Patient was somnolent but arousable, does not follow command or respond to questioning. Patient is not responding to questions regarding review of symptoms. Patient was found to be hypothermic and bradycardic on admission (temp 89 and HR in 30s). Patient was placed on griselda hugger, and HR elevated to rates >60. Patient has history of rejecting help, was at one time in [facility] but managed to sign herself out and was found at her brother's home agitated. She currently receives help from her neighbors, and is able to walk to [employer] on a regular basis- which is her baseline. Patient's sister wants to be kept updated on care: Zahira Cisneros, at [phone] REVIEW OF SYSTEMS: CONSTITUTIONAL: Absent: fever, chills, diaphoresis, generalized weakness, malaise, loss of appetite, weight change HEENT: Absent: rhinorrhea, nasal congestion, throat pain, throat swelling, difficulty swallowing, mouth swelling, ear pain, eye pain, visual changes CARDIOVASCULAR: Absent: chest pain, syncope, palpitations, irregular heart rate, lightheadedness, peripheral edema RESPIRATORY: Absent: cough, shortness of breath, dyspnea with exertion, orthopnea, wheezing, stridor, hemoptysis GASTROINTESTINAL: Absent: abdominal pain, abdominal distension, nausea, vomiting, diarrhea, constipation, melena, hematochezia GENITOURINARY: Absent: dysuria, frequency, urgency, hesitancy, hematuria, flank pain, genital pain MUSCULOSKELETAL: Absent: myalgia, arthralgia, joint swelling, back pain, neck pain SKIN: Absent: rash, itching, pallor HEMATOLOGIC/IMMUNOLOGIC: Absent: easy bleeding, easy bruising, lymphadenopathy, frequent infections ENDOCRINE: Absent: unexplained weight gain, unexplained weight loss, heat intolerance, cold intolerance NEUROLOGIC: Absent: headache, focal weakness or paresthesias, dizziness, unsteady gait, seizure, mental status changes, bladder or bowel incontinence PSYCHIATRIC: Absent: anxiety, depression, suicidal or homicidal ideation, hallucinations. PHYSICAL EXAMINATION Vital Signs - 24 hr 12/02/19 12/02/19 12/02/19 11:51 12:52 13:22 Temperature 97.8 F 88.9 F L 88 F L Pulse Rate 49 L 50 L Pulse Rate [ 44 L Apical] Respiratory 20 14 9 L Rate Blood Pressure 162/66 172/79 H Blood Pressure 137/82 [Right Arm] O2 Sat by Pulse 100 99 Oximetry (%) 12/02/19 12/02/19 12/02/19 13:27 14:26 14:29 Temperature 88.8 F L 88.8 F L Pulse Rate Pulse Rate [ 54 L 51 L Apical] Respiratory 9 L 18 Rate Blood Pressure Blood Pressure 127/75 127/75 [Right Arm] O2 Sat by Pulse 99 100 100 Oximetry (%) 12/02/19 12/02/19 12/02/19 16:13 16:56 17:26 Temperature 91.6 F L 93.9 F L Pulse Rate Pulse Rate [ 65 71 72 Apical] Respiratory 11 20 15 Rate Blood Pressure Blood Pressure 101/48 L 98/53 L 94/70 [Right Arm] O2 Sat by Pulse 95 95 95 Oximetry (%) 12/02/19 12/02/19 17:50 18:22 Temperature 94.4 F L 95.0 F L Pulse Rate 80 Pulse Rate [ 76 Apical] Respiratory 15 15 Rate Blood Pressure 122/107 H Blood Pressure 96/70 [Right Arm] O2 Sat by Pulse Oximetry (%) GENERAL: Somnolent but arousable. Not responding to questions or commands. Not in acute distress. HEAD: Normal with no signs of trauma. EYES: Pupils equal, round and reactive to light, extraocular movements intact, sclera anicteric, conjunctiva clear. No lid lag. EARS, NOSE, THROAT: Ears normal, nares patent, oropharynx clear without exudates. Moist mucous membranes. NECK: Normal range of motion, supple without lymphadenopathy, JVD, or masses. LUNGS: Breath sounds equal, clear to auscultation bilaterally. No wheezes, and no crackles.. HEART: Regular rate and rhythm, normal S1 and S2 without murmur, rub or gallop. ABDOMEN: Soft, nontender, not distended, normoactive bowel sounds, no guarding, UPPER EXTREMITIES: 2+ pulses, warm, well-perfused. No cyanosis. No clubbing. Cap refill <2 seconds. No peripheral edema. LOWER EXTREMITIES: Warm, erythematous/venous stasis changes b/l. Weeping legs. Pitting edema. NEUROLOGICAL: Unable to assess. PSYCHIATRIC: Unable to assess SKIN: Venous stasis changes on b/l legs. Rash in groin. Laboratory Results - last 24 hr 12/02/19 12/02/19 12/02/19 12:46 12:46 12:46 WBC 4.4 RBC 4.40 Hgb 13.0 Hct 39.8 MCV 90.5 MCH 29.5 MCHC 32.7 RDW 14.1 Plt Count 211 D MPV 9.0 Absolute Neuts (auto) 3.3 Neutrophils % 75.3 Lymphocytes % 15.9 D Monocytes % 7.4 Eosinophils % 1.0 Basophils % 0.4 Nucleated RBC % 0 PT with INR 12.90 INR 1.09 PTT (Actin FS) 38.9 H VBG pH POC VBG pCO2 POC VBG pO2 VBG HCO3 VBG O2 Sat (Yann) VBG Base Excess Sodium Potassium Chloride Carbon Dioxide Anion Gap BUN Creatinine Est GFR (CKD-EPI)AfAm Est GFR (CKD-EPI)NonAf Random Glucose Lactic Acid Calcium Total Bilirubin AST ALT Alkaline Phosphatase Creatine Kinase CK-MB (CK-2) Troponin I < 0.02 Total Protein Albumin Urine Color Urine Appearance Urine pH Ur Specific [place] Urine Protein Urine Glucose (UA) Urine Ketones Urine Blood Urine Nitrite Urine Bilirubin Urine Urobilinogen Ur Leukocyte Esterase Blood Type Antibody Screen 12/02/19 12/02/19 12/02/19 12:46 12:46 12:46 WBC RBC Hgb Hct MCV MCH MCHC RDW Plt Count MPV Absolute Neuts (auto) Neutrophils % Lymphocytes % Monocytes % Eosinophils % Basophils % Nucleated RBC % PT with INR INR PTT (Actin FS) VBG pH 7.34 POC VBG pCO2 55.6 H POC VBG pO2 < 49 H VBG HCO3 29.8 H VBG O2 Sat (Yann) 64.5 L VBG Base Excess 3.4 H Sodium 145 Potassium 3.8 Chloride 110 H Carbon Dioxide 30 Anion Gap 5 L BUN 12.2 Creatinine 0.6 Est GFR (CKD-EPI)AfAm 95.66 Est GFR (CKD-EPI)NonAf 82.53 Random Glucose 81 Lactic Acid 0.6 Calcium 9.4 Total Bilirubin 0.4 AST 36 ALT 26 Alkaline Phosphatase 190 H Creatine Kinase 89 CK-MB (CK-2) 16.8 H Troponin I Total Protein 6.3 L Albumin 3.2 L Urine Color Urine Appearance Urine pH Ur Specific [place] Urine Protein Urine Glucose (UA) Urine Ketones Urine Blood Urine Nitrite Urine Bilirubin Urine Urobilinogen Ur Leukocyte Esterase Blood Type Antibody Screen 12/02/19 12/02/19 12/02/19 12:46 12:59 17:15 WBC RBC Hgb Hct MCV MCH MCHC RDW Plt Count MPV Absolute Neuts (auto) Neutrophils % Lymphocytes % Monocytes % Eosinophils % Basophils % Nucleated RBC % PT with INR INR PTT (Actin FS) VBG pH POC VBG pCO2 POC VBG pO2 VBG HCO3 VBG O2 Sat (Yann) VBG Base Excess Sodium Potassium Chloride Carbon Dioxide Anion Gap BUN Creatinine Est GFR (CKD-EPI)AfAm Est GFR (CKD-EPI)NonAf Random Glucose Lactic Acid Calcium Total Bilirubin AST ALT Alkaline Phosphatase Creatine Kinase CK-MB (CK-2) Troponin I < 0.02 Total Protein Albumin Urine Color Yellow Urine Appearance Clear Urine pH 7.0 D Ur Specific [place] 1.013 Urine Protein Negative Urine Glucose (UA) Negative Urine Ketones Trace H Urine Blood Negative Urine Nitrite Negative Urine Bilirubin Negative Urine Urobilinogen 1.0 Ur Leukocyte Esterase Negative Blood Type O POSITIVE Antibody Screen Negative Active Medications Generic Name Dose Route Start Last Admin Trade Name Isaiah PRN Reason Stop Dose Admin Chlorhexidine Gluconate 1 applic 12/02/19 22:00 Hibiclens For Decolonization - TP HS STEPHANY Sodium Chloride 1,000 mls @ 100 mls/hr 12/02/19 15:00 12/02/19 15:37 Normal Saline - IV 100 mls/hr ASDIR STEPHANY Administration Mupirocin 1 applic 12/02/19 22:00 Bactroban Ointment (For Decolonization) - NS 12/07/19 21:59 BID STEPHANY Nystatin 1 applic 12/02/19 18:00 Mycostatin Cream - TP Q6HPO STEPHANY ASSESSMENT/PLAN: 84F PMH of dementia, HTN, LE cellulitis, orthostasis, venous stasis ulcers, rectal prolapse s/p surgical repair (04/2019) who presented today with hypothermia. Neuro -Hx of dementia but at baseline lives alone with support from neighbors and is able to attend [employer] on her own. -Patient is somnolent but arousable -Head CT negative for acute pathology -Neurochecks -Continue to monitor Cardiovascular -Hx of HTN -Bradycardia likely 2/2 to Hypothermia - rewarm with bairhugger. -Patient is normotensive with NSR -Continue to monitor -Echo ordered f/u results -Cardiology consulted, appreciate recs Pulmonary -Maintaining airway, satting well on RA -Continue to monitor GI -Patient has no GI related complaints -Continue to monitor Renal -Monitor electrolytes Endo -F/U TSH, thyroid studies, cortisol ID -Chronic venous stasis changes on B/l lower extremities. -Vanc/zoysn given -Lower extremity doppler ordered. F/U results -Vascular surgery consulted, appreciate recs F: Oral Hydration E: Monitor CMP N: Sodium controlled diet Lines: Peripheral IV in place Dispo: We will continue to follow the patient. Thank you for this consultative opportunity. Visit type - Emergency Visit Emergency Visit: Yes ED Registration Date: 12/02/19 Care time: The patient presented to the Emergency Department on the above date and was hospitalized for further evaluation of their emergent condition. - New Patient This patient is new to me today: Yes Date on this admission: 12/02/19 - Critical Care Critical Care patient: Yes Total Critical Care Time (in minutes): 45 Critical Care Statement: The care of this patient involved high complexity decision making to prevent further life threatening deterioration of the patient's condition and/or to evaluate & treat vital organ system(s) failure or risk of failure. ATTENDING PHYSICIAN STATEMENT I saw and evaluated the patient. I reviewed the resident's note and discussed the case with the resident. I agree with the resident's findings and plan as documented. SUBJECTIVE: OBJECTIVE: ASSESSMENT AND PLAN:
[2019-12-02] MEDS: CHLORHEXIDINE GLUCONATE 4% CLEANSER FOR DECOLONIZATION TP SCH (21:26)
[2019-12-02] MEDS: MUPIROCIN 2% TOPICAL OINTMENT FOR DECOLONIZATION NS SCH (21:27)
[2019-12-02] MEDS ORDERED: ACETAMINOPHEN 325 MG TABLET (FP) PO PRN (21:37)
[2019-12-02] MEDS: NYSTATIN 100,000 UNIT/GM TOPICAL CREAM 15 GM TUBE TP SCH (22:54)
[2019-12-03] MEDS: NYSTATIN 100,000 UNIT/GM TOPICAL CREAM 15 GM TUBE TP SCH ×4 (01:43→17:22)
[2019-12-03 06:43] LABS: BASO % 0.4 % (0-2.0); EOS % 0.7 % (0-4.5); HEMATOCRIT 33.9 % (32.4-45.2); HEMOGLOBIN 11.1 GM/dL (10.7-15.3); LYMPH % 10.5 % (8-40); MCH 29.6 pg (25.7-33.7); MCHC 32.7 g/dl (32.0-36.0); MEAN CELL VOLUME 90.6 fl (80-96); MEAN PLT VOLUME 9.4 fl (7.5-11.1); MONO % 9.1 % (3.8-10.2); NEUT % 79.3 % (42.8-82.8); PLATELET COUNT 196 K/MM3 (134-434); RBC 3.74 M/mm3 (3.60-5.2); RDW 14.5 % (11.6-15.6); WHITE BLOOD COUNT 6.1 K/mm3 (4.0-10.0)
--- NOTE | 2019-12-03 07:22 | PN ---
Physical Exam: SUBJECTIVE: Patient seen and examined NAEON, patient moaning unintelligible words. OBJECTIVE: Vital Signs Period Temp Pulse Resp BP Sys/Qureshi Pulse Ox Last 24 Hr 88 F-97.8 F 44-90 9-21 94-172/40-107 95-100 GENERAL: awake, alert, moaning unintelligible words, on Nely hugger HEAD: Normal with no signs of trauma. EYES: PERRL, extraocular movements intact, sclera anicteric, conjunctiva clear. No ptosis. ENT: Ears normal, nares patent, oropharynx clear without exudates, dry mucous membranes NECK: Trachea midline, full range of motion, supple. LUNGS: CTA b/l HEART: Regular rate and rhythm, S1, S2 without murmur, rub or gallop. ABDOMEN: Soft, nontender, nondistended, normoactive bowel sounds, no guarding, no rebound NEUROLOGICAL: patient moving all limbs spontaneously, opening and closing eyes, moaning unintelligible words SKIN: Warm, dry, significant cellulitic changes in b/l LE with scant yellow discharge and noticeable warmth Laboratory Results - last 24 hr 12/02/19 12/02/19 12/02/19 12:46 12:46 12:46 WBC 4.4 RBC 4.40 Hgb 13.0 Hct 39.8 MCV 90.5 MCH 29.5 MCHC 32.7 RDW 14.1 Plt Count 211 D MPV 9.0 Absolute Neuts (auto) 3.3 Neutrophils % 75.3 Lymphocytes % 15.9 D Monocytes % 7.4 Eosinophils % 1.0 Basophils % 0.4 Nucleated RBC % 0 PT with INR 12.90 INR 1.09 PTT (Actin FS) 38.9 H VBG pH POC VBG pCO2 POC VBG pO2 VBG HCO3 VBG O2 Sat (Yann) VBG Base Excess Sodium Potassium Chloride Carbon Dioxide Anion Gap BUN Creatinine Est GFR (CKD-EPI)AfAm Est GFR (CKD-EPI)NonAf POC Glucometer Random Glucose Lactic Acid Calcium Total Bilirubin AST ALT Alkaline Phosphatase Creatine Kinase CK-MB (CK-2) Troponin I < 0.02 Total Protein Albumin Urine Color Urine Appearance Urine pH Ur Specific [place] Urine Protein Urine Glucose (UA) Urine Ketones Urine Blood Urine Nitrite Urine Bilirubin Urine Urobilinogen Ur Leukocyte Esterase Blood Type Antibody Screen 0112/02/19 12/02/19 12:46 12:46 12:46 WBC RBC Hgb Hct MCV MCH MCHC RDW Plt Count MPV Absolute Neuts (auto) Neutrophils % Lymphocytes % Monocytes % Eosinophils % Basophils % Nucleated RBC % PT with INR INR PTT (Actin FS) VBG pH 7.34 POC VBG pCO2 55.6 H POC VBG pO2 < 49 H VBG HCO3 29.8 H VBG O2 Sat (Yann) 64.5 L VBG Base Excess 3.4 H Sodium 145 Potassium 3.8 Chloride 110 H Carbon Dioxide 30 Anion Gap 5 L BUN 12.2 Creatinine 0.6 Est GFR (CKD-EPI)AfAm 95.66 Est GFR (CKD-EPI)NonAf 82.53 POC Glucometer Random Glucose 81 Lactic Acid 0.6 Calcium 9.4 Total Bilirubin 0.4 AST 36 ALT 26 Alkaline Phosphatase 190 H Creatine Kinase 89 CK-MB (CK-2) 16.8 H Troponin I Total Protein 6.3 L Albumin 3.2 L Urine Color Urine Appearance Urine pH Ur Specific [place] Urine Protein Urine Glucose (UA) Urine Ketones Urine Blood Urine Nitrite Urine Bilirubin Urine Urobilinogen Ur Leukocyte Esterase Blood Type Antibody Screen 12/02/19 12/02/19 12/02/19 12:46 12:59 17:15 WBC RBC Hgb Hct MCV MCH MCHC RDW Plt Count MPV Absolute Neuts (auto) Neutrophils % Lymphocytes % Monocytes % Eosinophils % Basophils % Nucleated RBC % PT with INR INR PTT (Actin FS) VBG pH POC VBG pCO2 POC VBG pO2 VBG HCO3 VBG O2 Sat (Yann) VBG Base Excess Sodium Potassium Chloride Carbon Dioxide Anion Gap BUN Creatinine Est GFR (CKD-EPI)AfAm Est GFR (CKD-EPI)NonAf POC Glucometer Random Glucose Lactic Acid Calcium Total Bilirubin AST ALT Alkaline Phosphatase Creatine Kinase CK-MB (CK-2) Troponin I < 0.02 Total Protein Albumin Urine Color Yellow Urine Appearance Clear Urine pH 7.0 D Ur Specific [place] 1.013 Urine Protein Negative Urine Glucose (UA) Negative Urine Ketones Trace H Urine Blood Negative Urine Nitrite Negative Urine Bilirubin Negative Urine Urobilinogen 1.0 Ur Leukocyte Esterase Negative Blood Type O POSITIVE Antibody Screen Negative 12/02/19 12/02/19 12/03/19 19:08 21:33 05:45 WBC 6.1 RBC 3.74 Hgb 11.1 Hct 33.9 MCV 90.6 MCH 29.6 MCHC 32.7 RDW 14.5 Plt Count 196 MPV 9.4 Absolute Neuts (auto) 4.9 Neutrophils % 79.3 Lymphocytes % 10.5 D Monocytes % 9.1 Eosinophils % 0.7 Basophils % 0.4 Nucleated RBC % 0 PT with INR INR PTT (Actin FS) VBG pH POC VBG pCO2 POC VBG pO2 VBG HCO3 VBG O2 Sat (Yann) VBG Base Excess Sodium Potassium Chloride Carbon Dioxide Anion Gap BUN Creatinine Est GFR (CKD-EPI)AfAm Est GFR (CKD-EPI)NonAf POC Glucometer 103 Random Glucose Lactic Acid 0.9 Calcium Total Bilirubin AST ALT Alkaline Phosphatase Creatine Kinase CK-MB (CK-2) Troponin I Total Protein Albumin Urine Color Urine Appearance Urine pH Ur Specific [place] Urine Protein Urine Glucose (UA) Urine Ketones Urine Blood Urine Nitrite Urine Bilirubin Urine Urobilinogen Ur Leukocyte Esterase Blood Type Antibody Screen 12/03/19 05:57 WBC RBC Hgb Hct MCV MCH MCHC RDW Plt Count MPV Absolute Neuts (auto) Neutrophils % Lymphocytes % Monocytes % Eosinophils % Basophils % Nucleated RBC % PT with INR INR PTT (Actin FS) VBG pH POC VBG pCO2 POC VBG pO2 VBG HCO3 VBG O2 Sat (Yann) VBG Base Excess Sodium Potassium Chloride Carbon Dioxide Anion Gap BUN Creatinine Est GFR (CKD-EPI)AfAm Est GFR (CKD-EPI)NonAf POC Glucometer 68 Random Glucose Lactic Acid Calcium Total Bilirubin AST ALT Alkaline Phosphatase Creatine Kinase CK-MB (CK-2) Troponin I Total Protein Albumin Urine Color Urine Appearance Urine pH Ur Specific [place] Urine Protein Urine Glucose (UA) Urine Ketones Urine Blood Urine Nitrite Urine Bilirubin Urine Urobilinogen Ur Leukocyte Esterase Blood Type Antibody Screen Active Medications Generic Name Dose Route Start Last Admin Trade Name Freq PRN Reason Stop Dose Admin Acetaminophen 650 mg 12/02/19 21:37 12/02/19 21:48 Tylenol - PO 650 mg Q4H PRN Administration PAIN LEVEL 6-10 Chlorhexidine Gluconate 1 applic 12/02/19 22:00 12/02/19 21:26 Hibiclens For Decolonization - TP 1 applic HS STEPHANY Administration Sodium Chloride 1,000 mls @ 100 mls/hr 12/02/19 15:00 12/02/19 15:37 Normal Saline - IV 100 mls/hr ASDIR STEPHANY Administration Multi-Ingredient Lotion 1 applic 12/02/19 19:31 12/02/19 21:26 Eucerin (Large Jar) - TP 1 applic DAILY PRN Administration DRY SKIN Mupirocin 1 applic 12/02/19 22:00 12/02/19 21:27 Bactroban Ointment (For Decolonization) - NS 12/07/19 21:59 1 applic BID STEPHANY Administration Nystatin 1 applic 12/02/19 18:00 12/03/19 05:50 Mycostatin Cream - TP 1 applic Q6HPO STEPHANY Administration ASSESSMENT/PLAN: 84F PMH of dementia, HTN, b/l LE cellulitis, orthostasis, venous stasis ulcers, rectal prolapse s/p surgical repair (04/2019), presenting with hypothermia. Neuro: - Hx dementia - at baseline, lives alone with support from neighbors and able to attend restoration - awake, alert, oriented X0 - Head CT negative for acute pathology - neurochecks - ctm CV: - Hx HTN - initially bradycardic, likely 2/2 to hypothermia - bradycardia resolved after patient rewarmed with Nely hugger. - normotensive, NSR - echo ordered, f/u results - cardiology consulted, appreciate recs - ctm Respiratory: - maintaining airway, satting well on RA - continue to monitor GI: - no GI related complaints - continue to monitor Renal - AM glucose 72 - monitor electrolytes - ctm Endo - TSH high - T4 normal - cortisol pending ID - chronic venous stasis changes vs cellulitis on b/l lower extremities - vanc/piptazo given in ED (12/02/2019) - currently receiving ceftriaxone 1000mg daily and clindamycin 900mg TID ( started 12/03/2019) - Lower extremity doppler: no DVT, b/l soft tissue edema, b/l popliteal cysts - vascular surgery consulted, appreciate recs F: oral hydration E: monitor CMP, replete PRN N: sodium controlled diet Lines: peripheral IV in place Tubes: Bergeron placed 12/02/2019 Visit type - Emergency Visit Emergency Visit: Yes ED Registration Date: 12/02/19 Care time: The patient presented to the Emergency Department on the above date and was hospitalized for further evaluation of their emergent condition. - New Patient This patient is new to me today: Yes Date on this admission: 12/03/19 - Critical Care Critical Care patient: Yes Total Critical Care Time (in minutes): 45 Critical Care Statement: The care of this patient involved high complexity decision making to prevent further life threatening deterioration of the patient 's condition and/or to evaluate & treat vital organ system(s) failure or risk of failure. ATTENDING PHYSICIAN STATEMENT I saw and evaluated the patient. I reviewed the resident's note and discussed the case with the resident. I agree with the resident's findings and plan as documented. SUBJECTIVE: OBJECTIVE: ASSESSMENT AND PLAN:
[2019-12-03 07:23] LABS: ALBUMIN 2.6 g/dl (3.4-5.0); BILIRUBIN,TOTAL 0.4 mg/dL (0.2-1); BLOOD UREA NITROGEN 13.5 mg/dL (7-18); CALCIUM 8.8 mg/dL (8.5-10.1); CREATININE 0.8 mg/dL (0.55-1.3); MAGNESIUM 1.9 mg/dL (1.8-2.4); PHOSPHOROUS 3.2 mg/dL (2.5-4.9); POTASSIUM 3.5 mmol/L (3.5-5.1); TOT PROT 5.2 g/dl (6.4-8.2)
[2019-12-03] MEDS ORDERED: CEFTRIAXONE 1 GM in DEXTROSE 5%-WATER - 50 ML IVPB ONE (07:45)
[2019-12-03] MEDS ORDERED: cefTRIAXone SODIUM 1 GM VIAL ONE (07:48)
[2019-12-03] MEDS ORDERED: DEXTROSE 5%-WATER - 50 ML IVPB ONE (07:49)
--- NOTE | 2019-12-03 08:40 | PN ---
Progress Note (short form) - Note Progress Note: CBC, BMP 12/03/19 05:45 12/03/19 05:45 Vital Signs Period Temp Pulse Resp BP Sys/Qureshi Pulse Ox Last 24 Hr 88 F-97.8 F 44-90 9-21 94-172/40-107 95-100 S1S2 RRR lungs cta abd soft candidiasis in skin folds chr.venous stasis and ulcers awake alert agitated very hard of hearing 84 yo lady admitted for lethargy/ hypothermic shock poor judgment and insight into her condition, well known to aps temp better, vitals are good can transfer to regular floor cellulitis and venous ulcers cont iv abx wound care will request psychiatric evaluation for capacity needs snf physical therapy Problem List - Problems (1) AMS (altered mental status) Code(s): R41.82 - ALTERED MENTAL STATUS, UNSPECIFIED Qualifiers: Altered mental status type: somnolence Qualified Code(s): R40.0 - Somnolence (2) Bradycardia Code(s): R00.1 - BRADYCARDIA, UNSPECIFIED (3) Hypothermia Code(s): T68.XXXA - HYPOTHERMIA, INITIAL ENCOUNTER Qualifiers: Encounter type: initial encounter Qualified Code(s): T68.XXXA - Hypothermia , initial encounter (4) Lower extremity cellulitis Code(s): L03.119 - CELLULITIS OF UNSPECIFIED PART OF LIMB Qualifiers: Laterality: unspecified laterality Qualified Code(s): L03.119 - Cellulitis of unspecified part of limb
[2019-12-03] MEDS ORDERED: CLINDAMYCIN 900 MG PREMIX IVPB 900 MG/50 ML BAG IVPB SCH (09:00)
--- NOTE | 2019-12-03 09:10 | PN ---
Progress Note (short form) - Note Progress Note: ID consult dictated 84 yo female lives alone in unheated apt, apparently no water too- her neighbors look after her! admitted with hypothermia and bradycardia, bilateral lower extremity cellulitis has been treated in the past for bilateral lower extremity cellulitis- [facility] [place] hypothermia- suspect environmental- improving bradycardia resolved with warming bilateral cellulitis- resume cefazolin, f/u cultures wound care consultation Problem List - Problems (1) Lower extremity cellulitis Code(s): L03.119 - CELLULITIS OF UNSPECIFIED PART OF LIMB Qualifiers: Laterality: unspecified laterality Qualified Code(s): L03.119 - Cellulitis of unspecified part of limb (2) Hypothermia Code(s): T68.XXXA - HYPOTHERMIA, INITIAL ENCOUNTER Qualifiers: Encounter type: initial encounter Qualified Code(s): T68.XXXA - Hypothermia , initial encounter (3) Bradycardia Code(s): R00.1 - BRADYCARDIA, UNSPECIFIED
[2019-12-03] MEDS: CEFAZOLIN 2 GM/D5W 2 GM/50 ML ML IVPB SCH ×2 (10:07→17:19)
[2019-12-03] MEDS: MUPIROCIN 2% TOPICAL OINTMENT FOR DECOLONIZATION NS SCH (10:07)
--- NOTE | 2019-12-03 10:44 | ECHO ---
Name: AVANI BUSTAMANTE Exam:Adult Echocardiogram Study Date: 12/03/2019 07:39 AM Age: 84 yrs Height: 62 in Weight: 190 lb BSA: 1.9 m2 MMode/2D Measurements & Calculations IVSd: 1.6 cm Ao root diam: 2.9 cm LVIDd: 3.3 cm LA dimension: 3.2 cm LVIDs: 2.3 cm LVPWd: 1.4 cm EDV(Teich): 44.4 ml LVOT diam: 2.0 cm ESV(Teich): 17.9 ml Doppler Measurements & Calculations MV E max robert: 116.0 cm/sec Ao V2 max: 279.0 cm/sec MV A max robert: 156.5 cm/sec Ao max P.1 mmHg MV E/A: 0.74 Ao V2 mean: 185.7 cm/sec MV dec time: 0.13 sec Ao mean P.5 mmHg Ao V2 VTI: 68.6 cm ARIE(I,D): 1.3 cm2 ARIE(V,D): 1.5 cm2 LV V1 max P.4 mmHg MR max robert: 408.6 cm/sec LV V1 mean P.9 mmHg MR max P.6 mmHg LV V1 max: 126.1 cm/sec LV V1 mean: 94.4 cm/sec LV V1 VTI: 27.3 cm SV(LVOT): 89.8 ml TR max robert: 312.5 cm/sec TR max P.4 mmHg PA V2 max: 105.6 cm/sec Med Peak E' Robert: 11.1 cm/sec PA max P.5 mmHg Med E/e': 10.5 Lat Peak E' Robert: 10.0 cm/sec Lat E/e': 11.6 PI Vmax: 178.0 cm/sec Left Ventricle There is moderate concentric left ventricular hypertrophy. Left ventricular systolic function is norm al. Ejection Fraction = 55-60%. Right Ventricle The right ventricle is normal in size and function. Atria The left atrium is borderline dilated. Mitral Valve There is mild mitral annular calcification. There is no mitral valve stenosis. There is mild mitral regurgitation. Tricuspid Valve The tricuspid valve is normal in structure and function. There is mild tricuspid regurgitation. Right ventricular systolic pressure is elevated at 30-40mmHg. Aortic Valve Mild valvular aortic stenosis. Pulmonic Valve The pulmonic valve leaflets are thin and pliable; valve motion is normal. There is no pulmonic valvul ar stenosis. Mild pulmonic valvular regurgitation. Great Vessels The aortic root is normal size. Pericardium/Pleura There is no pericardial effusion. Interpretation Summary There is moderate concentric left ventricular hypertrophy. Left ventricular systolic function is normal. Ejection Fraction = 55-60%. There is mild mitral annular calcification. There is mild mitral regurgitation. There is mild tricuspid regurgitation. Right ventricular systolic pressure is elevated at 30-40mmHg. Mild valvular aortic stenosis. There is no pericardial effusion. MD Dotson *Gogo 12/03/2019 10:43 AM
--- NOTE | 2019-12-03 10:54 | CONS ---
INFECTIOUS DISEASE CONSULTATION DATE OF CONSULTATION: 12/03/2019 REQUESTING PHYSICIAN: Eve Greer MD HISTORY: This is an 84-year-old woman who lives alone at home. She was last seen by her neighbors 2 days prior to admission. Yesterday when they rechecked her, she was lethargic and hypothermic. She is apparently living in an apartment with no heat and apparently no running water. Her neighbors bring her food. She is apparently a hoarder and has refused placement in the past at detention. She was last hospitalized in April at [facility] when she had bilateral cellulitis. Wound culture grew MSSA. She was treated with cefazolin and transferred to [facility] for surgery for rectal prolapse. On admission, she was found to be hypothermic and hypotensive and bradycardic and lethargic. After warming blankets and warming fluids, she is awake and alert. She is very hard of hearing. She noted to have bilateral lower extremity erythema with some serous drainage and was originally given vancomycin and Zosyn in the ER and switched to clindamycin and ceftriaxone. I am asked to see her for antibiotic management. She is currently resting comfortably. She is awake and alert. On exam, she is perfusing well, and her skin is warm. PAST MEDICAL HISTORY: Notable for hypertension, cellulitis. She has had rectal prolapse surgical repair in April 2019. She has a history of chronic venostasis dermatitis as well and rectal prolapse. ALLERGIES: She has no known allergies. MEDICATIONS: It is unclear if she is taking any medicines as an outpatient. SOCIAL HISTORY: There is no history of cigarette, alcohol, or substance use. 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 There is no history of any travel. REVIEW OF SYSTEMS: She denies everything. PHYSICAL EXAMINATION: Vital Signs: Her current temperature is 96.4, blood pressure is 104/87, heart rate is 85, respiratory rate is 15. She is saturating 97%. HEENT: She is normocephalic. Her eyes are anicteric. Neck: Supple. Lungs: Clear to auscultation. Heart: Regular rate and rhythm. Abdomen: Soft, nontender. Extremities: She has some edema of both her legs with some erythema and some serous drainage from the lateral aspects of both legs. DIAGNOSTIC DATA: She had a duplex of her legs that is negative for DVT, and she had a chest x-ray that shows no infiltrate. She had a head CT done as well that is notable for moderate atrophy and periventricular chronic microvascular changes. No gross CT evidence of acute intracranial pathology. Labs are notable for a white count of 6.1, hemoglobin 11.1, platelets are 196. BUN 13.5, creatinine 0.8. Her alkaline phosphatase is 153. Albumin is 2.6. Urinalysis is negative. Her RPR in April was negative. Of note, she has no other skin breakdown. In summary, this is an 84-year-old woman admitted with hypothermia and bradycardia that I suspect is on the basis of environmental with an apartment with no heat. She appears to be improving. Her bradycardia has resolved. She has bilateral cellulitis with known MSSA. Given the fact that she seems to avoid physicians and hospitals, I would suspect that this is a persistent MSSA infection. Would obtain a wound culture. She does have drainage to confirm this. Would switch her antibiotics to cefazolin at this time. Would suggest wound care evaluation for local treatment advice. Further recommendations to follow. GEETHA SONG M.D. [id number]
--- NOTE | 2019-12-03 11:29 | CON.PSY ---
Psychiatry Consult Chief Complaint: 84 David 9old female admitted to ICU for failure to care for herself. Developed infection on both legs. Patient is confused and has hearing impairment unable to care for herself. Poor Historian. Symptoms: reports: Memory Impairment - Previous Psychiatric Treatment Outpatient: None Inpatient: None - Previous Substance Abuse Treatment Outpatient: None Inpatient: None - Current Medications Current Medications: Active Medications Acetaminophen (Tylenol -) 650 mg PO Q4H PRN PRN Reason: PAIN LEVEL 6-10 Last Admin: 12/02/19 21:48 Dose: 650 mg Chlorhexidine Gluconate (Hibiclens For Decolonization -) 1 applic TP HS [facility] Last Admin: 12/02/19 21:26 Dose: 1 applic Sodium Chloride (Normal Saline -) 1,000 mls @ 100 mls/hr IV ASDIR [facility] Last Admin: 12/02/19 15:37 Dose: 100 mls/hr Cefazolin Sodium/Dextrose (Ancef 2 Gm Premixed Ivpb -) 2 gm in 50 mls @ 200 mls /hr IVPB Q8H-IV [facility] Last Admin: 12/03/19 10:07 Dose: 200 mls/hr Multi-Ingredient Lotion (Eucerin (Large Jar) -) 1 applic TP DAILY PRN PRN Reason: DRY SKIN Last Admin: 12/02/19 21:26 Dose: 1 applic Mupirocin (Bactroban Ointment (For Decolonization) -) 1 applic NS BID [facility] Stop: 12/07/19 21:59 Last Admin: 12/03/19 10:07 Dose: 1 applic Nystatin (Mycostatin Cream -) 1 applic TP Q6HPO [facility] Last Admin: 12/03/19 05:50 Dose: 1 applic - Allergies Allergies: Allergies Allergy/AdvReac Type Severity Reaction Status Date / Time No Known Allergies Allergy Verified 12/02/19 11:51 - Current Living Status Usual Living Arrangement: Alone - Current Mental Status Evaluation Appearance: Disheveled Attitude: Guarded - Affect Affect: Constrictive Appropriateness: Not Appropriate - Mood Mood: Irritable - Speech/Language Expressive: Delayed - Psychomotor Activity Psychomotor Activity: Slowed - Thought Process Thought Process: Circumstantial - Thought Content Hallucinations: Absent Delusions: Absent - Self Perception Self Perception: Depersonalization - Cognition Attention: Diminished Orientation: Time, Person, Place Memory, Immediate Recall: Impaired Memory, Short Term: 1/3 Memory, Remote with Promptin/3 - Abstraction Proverb Interpretation: [place] Judgement: Moderately Impaired - Insight Insight: Impaired - Impulse Control Impulse Control: Minimally Impaired - Suicidal Ideation Suicidal Ideation: No - Homicidal Ideation Homicidal Ideation: No Assessment/Plan 1) Patient lacks Capacity to make decisions at this time. needs Skilled Nursing care like SNF.
--- NOTE | 2019-12-03 13:37 | PN ---
Teaching Attending Note Name of Resident: Mariano Wright ATTENDING PHYSICIAN STATEMENT I saw and evaluated the patient. I reviewed the resident's note and discussed the case with the resident. I agree with the resident's findings and plan as documented. SUBJECTIVE: Patient seen and examined in the ICU. Lethargic but arousable. Can tell us her name but no other information. Intake & Output 11/30/19 12/01/19 12/02/19 12/03/19 23:59 23:59 23:59 23:59 Intake Total 2400 1100 Output Total 500 400 Balance 1900 700 Weight 190 lb 191 lb 5 oz Last Vital Signs Temp Pulse Resp BP Pulse Ox 97.4 F L 88 15 104/59 L 97 12/03/19 10:00 12/03/19 12:00 12/03/19 12:00 12/03/19 10:00 12/03/19 09:00 Active Medications Acetaminophen (Tylenol -) 650 mg PO Q4H PRN PRN Reason: PAIN LEVEL 6-10 Last Admin: 12/02/19 21:48 Dose: 650 mg Chlorhexidine Gluconate (Hibiclens For Decolonization -) 1 applic TP HS [facility] Last Admin: 12/02/19 21:26 Dose: 1 applic Sodium Chloride (Normal Saline -) 1,000 mls @ 100 mls/hr IV ASDIR [facility] Last Admin: 12/02/19 15:37 Dose: 100 mls/hr Cefazolin Sodium/Dextrose (Ancef 2 Gm Premixed Ivpb -) 2 gm in 50 mls @ 200 mls /hr IVPB Q8H-IV STEPHANY Last Admin: 12/03/19 10:07 Dose: 200 mls/hr Multi-Ingredient Lotion (Eucerin (Large Jar) -) 1 applic TP DAILY PRN PRN Reason: DRY SKIN Last Admin: 12/02/19 21:26 Dose: 1 applic Mupirocin (Bactroban Ointment (For Decolonization) -) 1 applic NS BID [facility] Stop: 12/07/19 21:59 Last Admin: 12/03/19 10:07 Dose: 1 applic Nystatin (Mycostatin Cream -) 1 applic TP Q6HPO [facility] Last Admin: 12/03/19 05:50 Dose: 1 applic GENERAL: Somnolent but arousable. Not in acute distress. HEAD: Normal with no signs of trauma. EYES: sclera anicteric, conjunctiva clear. EARS, NOSE, THROAT: Dry mucous membranes. NECK: Normal range of motion, supple without lymphadenopathy, JVD, or masses. LUNGS: Breath sounds equal, clear to auscultation bilaterally. No wheezes, and no crackles.. HEART: Regular rate and rhythm, normal S1 and S2 without murmur, rub or gallop. ABDOMEN: Soft, nontender, not distended, normoactive bowel sounds, no guarding, UPPER EXTREMITIES: 2+ pulses, warm, well-perfused. No cyanosis. No clubbing. Cap refill <2 seconds. No peripheral edema. LOWER EXTREMITIES: Warm, erythematous/venous stasis changes b/l. Weeping legs. Pitting edema. NEUROLOGICAL: Lethargic but non-focal PSYCHIATRIC: Lethargic SKIN: Venous stasis changes on b/l legs. Rash in groin. Laboratory Results - last 24 hr 12/02/19 12/02/19 12/02/19 12:46 12:46 12:46 WBC RBC Hgb Hct MCV MCH MCHC RDW Plt Count MPV Absolute Neuts (auto) Neutrophils % Lymphocytes % Monocytes % Eosinophils % Basophils % Nucleated RBC % PT with INR 12.90 INR 1.09 PTT (Actin FS) 38.9 H Sodium 145 Potassium 3.8 Chloride 110 H Carbon Dioxide 30 Anion Gap 5 L BUN 12.2 Creatinine 0.6 Est GFR (CKD-EPI)AfAm 95.66 Est GFR (CKD-EPI)NonAf 82.53 POC Glucometer Random Glucose 81 Lactic Acid Calcium 9.4 Phosphorus Magnesium Total Bilirubin 0.4 AST 36 ALT 26 Alkaline Phosphatase 190 H Creatine Kinase 89 CK-MB (CK-2) 16.8 H Troponin I < 0.02 Total Protein 6.3 L Albumin 3.2 L TSH Thyroxine (T4) Resin T3 Uptake Blood Type Antibody Screen 12/02/19 12/02/19 12/02/19 12:46 12:46 12:59 WBC RBC Hgb Hct MCV MCH MCHC RDW Plt Count MPV Absolute Neuts (auto) Neutrophils % Lymphocytes % Monocytes % Eosinophils % Basophils % Nucleated RBC % PT with INR INR PTT (Actin FS) Sodium Potassium Chloride Carbon Dioxide Anion Gap BUN Creatinine Est GFR (CKD-EPI)AfAm Est GFR (CKD-EPI)NonAf POC Glucometer Random Glucose Lactic Acid 0.6 Calcium Phosphorus Magnesium Total Bilirubin AST ALT Alkaline Phosphatase Creatine Kinase CK-MB (CK-2) Troponin I Total Protein Albumin TSH Thyroxine (T4) Resin T3 Uptake Blood Type O POSITIVE O POSITIVE Antibody Screen Negative Negative 12/02/19 12/02/19 12/02/19 17:15 19:08 21:33 WBC RBC Hgb Hct MCV MCH MCHC RDW Plt Count MPV Absolute Neuts (auto) Neutrophils % Lymphocytes % Monocytes % Eosinophils % Basophils % Nucleated RBC % PT with INR INR PTT (Actin FS) Sodium Potassium Chloride Carbon Dioxide Anion Gap BUN Creatinine Est GFR (CKD-EPI)AfAm Est GFR (CKD-EPI)NonAf POC Glucometer 103 Random Glucose Lactic Acid 0.9 Calcium Phosphorus Magnesium Total Bilirubin AST ALT Alkaline Phosphatase Creatine Kinase CK-MB (CK-2) Troponin I < 0.02 Total Protein Albumin TSH Thyroxine (T4) Resin T3 Uptake Blood Type Antibody Screen 12/03/19 12/03/19 12/03/19 05:45 05:45 05:57 WBC 6.1 RBC 3.74 Hgb 11.1 Hct 33.9 MCV 90.6 MCH 29.6 MCHC 32.7 RDW 14.5 Plt Count 196 MPV 9.4 Absolute Neuts (auto) 4.9 Neutrophils % 79.3 Lymphocytes % 10.5 D Monocytes % 9.1 Eosinophils % 0.7 Basophils % 0.4 Nucleated RBC % 0 PT with INR INR PTT (Actin FS) Sodium 145 Potassium 3.5 Chloride 112 H Carbon Dioxide 27 Anion Gap 5 L BUN 13.5 Creatinine 0.8 Est GFR (CKD-EPI)AfAm 77.37 Est GFR (CKD-EPI)NonAf 66.76 POC Glucometer 68 Random Glucose 72 L Lactic Acid Calcium 8.8 Phosphorus 3.2 Magnesium 1.9 Total Bilirubin 0.4 AST 29 ALT 21 Alkaline Phosphatase 153 H Creatine Kinase CK-MB (CK-2) Troponin I Total Protein 5.2 L Albumin 2.6 L TSH 6.96 H Thyroxine (T4) 8.2 Resin T3 Uptake 36.2 Blood Type Antibody Screen 12/03/19 11:37 WBC RBC Hgb Hct MCV MCH MCHC RDW Plt Count MPV Absolute Neuts (auto) Neutrophils % Lymphocytes % Monocytes % Eosinophils % Basophils % Nucleated RBC % PT with INR INR PTT (Actin FS) Sodium Potassium Chloride Carbon Dioxide Anion Gap BUN Creatinine Est GFR (CKD-EPI)AfAm Est GFR (CKD-EPI)NonAf POC Glucometer 80 Random Glucose Lactic Acid Calcium Phosphorus Magnesium Total Bilirubin AST ALT Alkaline Phosphatase Creatine Kinase CK-MB (CK-2) Troponin I Total Protein Albumin TSH Thyroxine (T4) Resin T3 Uptake Blood Type Antibody Screen ASSESSMENT/PLAN: Resolving Hypothermia: likely environmentally induced Low clinical suspicion of Sepsis Dementia HTN Bilateral LE cellulitis R/O DVT Venous stasis ulcers History of rectal prolapse s/p surgical repair (04/2019) ABX per ID Surgical evaluation / Local wound care O2 as needed Aspiration precautions ECHO IVF Can monitor on the floor Dr Mcfadden
--- NOTE | 2019-12-03 14:10 | EKG ---
Test Reason : Blood Pressure : / mmHG Vent. Rate : 050 BPM Atrial Rate : 050 BPM P-R Int : 208 ms QRS Dur : 092 ms QT Int : 548 ms P-R-T Axes : 068 -16 055 degrees QTc Int : 499 ms POOR DATA QUALITY, INTERPRETATION MAY BE ADVERSELY AFFECTED SINUS BRADYCARDIA WHEN COMPARED WITH ECG OF 28-MAY-2019 20:33, PREMATURE ATRIAL COMPLEXES ARE NO LONGER PRESENT VENT. RATE HAS DECREASED BY 32 BPM Confirmed by RAIMUNDO ELLIOTT MD ([id number]) on 12/03/2019 2:09:27 PM Referred By: Confirmed By:RAIMUNDO ELLIOTT MD
[2019-12-03] MEDS: SODIUM CHLORIDE 1,000 ML IV SCH (17:16)
--- NOTE | 2019-12-03 17:27 | PN ---
Progress Note (short form) - Note Progress Note: VAscular surgery Pt seen and examined. Bl lower ext cellulitis with weeping ulcers. Leg elevation. Will start slivadene and raphael for compression. CAn follow up in wound care clinic on DC. Gage Peralta DO
[2019-12-03] MEDS: SILVER SULFADIAZINE 1% TOP CREAM 50 GM JAR TP SCH (23:30)
[2019-12-04] MEDS: NYSTATIN 100,000 UNIT/GM TOPICAL CREAM 15 GM TUBE TP SCH ×4 (00:47→22:38)
[2019-12-04] MEDS: CEFAZOLIN 2 GM/D5W 2 GM/50 ML ML IVPB SCH ×3 (01:33→18:12)
[2019-12-04] MEDS ORDERED: MINERAL OIL/PETROLAT/WATER TOPICAL CREAM 454 GM JAR TP PRN (08:57)
[2019-12-04] MEDS ORDERED: SODIUM CHLORIDE 1,000 ML IV SCH (08:57)
[2019-12-04] MEDS ORDERED: ACETAMINOPHEN 325 MG TABLET (FP) PO PRN (08:57)
[2019-12-04] MEDS: CHLORHEXIDINE GLUCONATE 4% CLEANSER FOR DECOLONIZATION TP SCH (09:00)
[2019-12-04] MEDS: MUPIROCIN 2% TOPICAL OINTMENT FOR DECOLONIZATION NS SCH (09:00)
--- NOTE | 2019-12-04 09:10 | PN ---
Progress Note (short form) - Note Progress Note: CBC, BMP 12/03/19 05:45 12/03/19 05:45 Vital Signs Period Temp Pulse Resp BP Sys/Qureshi Pulse Ox Last 24 Hr 96.7 F-97.6 F 69-88 11-18 90-151/44-99 S1S2 RRR lungs cta abd soft candidiasis in skin folds chr.venous stasis and ulcers dressed at present resting 84 yo lady admitted for lethargy/ hypothermic shock poor judgment and insight into her condition, well known to aps seen by psychiatry lacks capacity cellulitis and venous ulcers dc fluids-getting edematous cont iv abx wound care consults appreciated needs snf dc planning friday physical therapy Problem List - Problems (1) AMS (altered mental status) Code(s): R41.82 - ALTERED MENTAL STATUS, UNSPECIFIED Qualifiers: Altered mental status type: somnolence Qualified Code(s): R40.0 - Somnolence (2) Bradycardia Code(s): R00.1 - BRADYCARDIA, UNSPECIFIED (3) Hypothermia Code(s): T68.XXXA - HYPOTHERMIA, INITIAL ENCOUNTER Qualifiers: Encounter type: initial encounter Qualified Code(s): T68.XXXA - Hypothermia , initial encounter (4) Lower extremity cellulitis Code(s): L03.119 - CELLULITIS OF UNSPECIFIED PART OF LIMB Qualifiers: Laterality: unspecified laterality Qualified Code(s): L03.119 - Cellulitis of unspecified part of limb
[2019-12-04 09:49] LABS: BASO % 0.5 % (0-2.0); EOS % 1.6 % (0-4.5); HEMOGLOBIN 11.5 GM/dL (10.7-15.3); LYMPH % 16.7 % (8-40); MCH 29.8 pg (25.7-33.7); MCHC 32.9 g/dl (32.0-36.0); MEAN CELL VOLUME 90.6 fl (80-96); MEAN PLT VOLUME 9.4 fl (7.5-11.1); MONO % 7.4 % (3.8-10.2); NEUT % 73.8 % (42.8-82.8); PLATELET COUNT 185 K/MM3 (134-434); RBC 3.86 M/mm3 (3.60-5.2); RDW 14.4 % (11.6-15.6)
[2019-12-04] MEDS ORDERED: CEFTRIAXONE 1 GM in DEXTROSE 5%-WATER - 50 ML IVPB SCH (10:00)
[2019-12-04 10:16] LABS: ALBUMIN 2.6 g/dl (3.4-5.0); BILIRUBIN,TOTAL 0.3 mg/dL (0.2-1); BLOOD UREA NITROGEN 16.7 mg/dL (7-18); CALCIUM 8.7 mg/dL (8.5-10.1); CREATININE 0.8 mg/dL (0.55-1.3); MAGNESIUM 2.1 mg/dL (1.8-2.4); PHOSPHOROUS 3.2 mg/dL (2.5-4.9); POTASSIUM 3.4 mmol/L (3.5-5.1); TOT PROT 5.3 g/dl (6.4-8.2)
--- NOTE | 2019-12-04 11:17 | PN ---
Progress Note (short form) - Note Progress Note: QUECHAN eating poorly Vital Signs Period Temp Pulse Resp BP Sys/Qureshi Pulse Ox Last 24 Hr 95.8 F-97.6 F 69-88 11-18 90-151/44-99 cor-rrr llungs clear abd soft,nt ext +edema +venous stasis with erythema CBC, BMP 12/04/19 09:18 12/04/19 09:18 Microbiology 12/02/19 12:46 Blood - Peripheral Venous Blood Culture - Preliminary NO GROWTH OBTAINED AFTER 24 HOURS, INCUBATION TO CONTINUE FOR 4 DAYS. 12/02/19 12:46 Blood - Peripheral Venous Blood Culture - Preliminary NO GROWTH OBTAINED AFTER 24 HOURS, INCUBATION TO CONTINUE FOR 4 DAYS. 12/02/19 12:59 Urine - Urine Bergeron Urine Culture - Final NO GROWTH OBTAINED a/p hypothermia- suspect environmental-resolved bradycardia resolved with warming bilateral cellulitis- continue cefazolin,cultures negative wound care ?placement Problem List - Problems (1) Lower extremity cellulitis Code(s): L03.119 - CELLULITIS OF UNSPECIFIED PART OF LIMB Qualifiers: Laterality: unspecified laterality Qualified Code(s): L03.119 - Cellulitis of unspecified part of limb (2) Hypothermia Code(s): T68.XXXA - HYPOTHERMIA, INITIAL ENCOUNTER Qualifiers: Encounter type: initial encounter Qualified Code(s): T68.XXXA - Hypothermia , initial encounter (3) Bradycardia Code(s): R00.1 - BRADYCARDIA, UNSPECIFIED
[2019-12-04 13:46] VITALS: BMI 34.9
[2019-12-04] MEDS: SILVER SULFADIAZINE 1% TOP CREAM 50 GM JAR TP SCH (19:30)
[2019-12-04] MEDS ORDERED: PT OWN MED DRAWER 7, Y5N ONE (21:47)
[2019-12-05] MEDS: NYSTATIN 100,000 UNIT/GM TOPICAL CREAM 15 GM TUBE TP SCH ×4 (00:35→18:58)
[2019-12-05] MEDS: CEFAZOLIN 2 GM/D5W 2 GM/50 ML ML IVPB SCH ×3 (01:37→18:58)
--- NOTE | 2019-12-05 10:05 | PN ---
Progress Note (short form) - Note Progress Note: CBC, BMP CBC, BMP 12/04/19 09:18 12/04/19 09:18 Vital Signs Period Temp Pulse Resp BP Sys/Qureshi Pulse Ox Last 24 Hr 97.3 F-98.4 F 75-82 16-18 124-162/69-92 95 S1S2 RRR lungs cta abd soft candidiasis in skin folds chr.venous stasis and ulcers dressed at present resting 84 yo lady admitted for lethargy/ hypothermic shock poor judgment and insight into her condition, well known to aps seen by psychiatry lacks capacity cellulitis and venous ulcers abx as per id, can switch to po keflex tomorrow wound care consults appreciated needs snf dc planning friday physical therapy Problem List - Problems (1) AMS (altered mental status) Code(s): R41.82 - ALTERED MENTAL STATUS, UNSPECIFIED Qualifiers: Altered mental status type: somnolence Qualified Code(s): R40.0 - Somnolence (2) Bradycardia Code(s): R00.1 - BRADYCARDIA, UNSPECIFIED (3) Hypothermia Code(s): T68.XXXA - HYPOTHERMIA, INITIAL ENCOUNTER Qualifiers: Encounter type: initial encounter Qualified Code(s): T68.XXXA - Hypothermia , initial encounter (4) Lower extremity cellulitis Code(s): L03.119 - CELLULITIS OF UNSPECIFIED PART OF LIMB Qualifiers: Laterality: unspecified laterality Qualified Code(s): L03.119 - Cellulitis of unspecified part of limb
--- NOTE | 2019-12-05 12:09 | PN ---
Progress Note (short form) - Note Progress Note: much more alert conversant ambulating Vital Signs Period Temp Pulse Resp BP Sys/Qursehi Pulse Ox Last 24 Hr 97.3 F-98.4 F 74-82 16-18 124-162/69-92 95 cor-rrr lungs clear abd soft,nt legs unwrapped- much improved, minimal erythema, minimal drainage CBC, BMP 12/04/19 09:18 12/04/19 09:18 Microbiology 12/03/19 11:01 Drainage (Swab) Gram Stain - Final 12/03/19 11:01 Drainage (Swab) Wound Culture - Preliminary Non Lactose Fermenting Gnb Pending Organism Pending Organism#2 Pending Organism#3 12/03/19 10:30 Leg - Right Knee Gram Stain - Final 12/03/19 10:30 Leg - Right Knee Wound Culture - Preliminary Non Lactose Fermenting Gnb Pending Organism 12/02/19 12:46 Blood - Peripheral Venous Blood Culture - Preliminary NO GROWTH OBTAINED AFTER 48 HOURS, INCUBATION TO CONTINUE FOR 3 DAYS. 12/02/19 12:46 Blood - Peripheral Venous Blood Culture - Preliminary NO GROWTH OBTAINED AFTER 48 HOURS, INCUBATION TO CONTINUE FOR 3 DAYS. 12/02/19 12:59 Urine - Urine Bergeron Urine Culture - Final NO GROWTH OBTAINED a/p hypothermia- suspect environmental-resolved bradycardia resolved with warming bilateral cellulitis- continue cefazolin,cultures negative- plan po keflex or augmentin when ready for d/c wound care ?placement d/w PMD Problem List - Problems (1) Lower extremity cellulitis Code(s): L03.119 - CELLULITIS OF UNSPECIFIED PART OF LIMB Qualifiers: Laterality: unspecified laterality Qualified Code(s): L03.119 - Cellulitis of unspecified part of limb (2) Hypothermia Code(s): T68.XXXA - HYPOTHERMIA, INITIAL ENCOUNTER Qualifiers: Encounter type: initial encounter Qualified Code(s): T68.XXXA - Hypothermia , initial encounter (3) Bradycardia Code(s): R00.1 - BRADYCARDIA, UNSPECIFIED
[2019-12-05] MEDS: SILVER SULFADIAZINE 1% TOP CREAM 50 GM JAR TP SCH (13:39)
[2019-12-06] MEDS: NYSTATIN 100,000 UNIT/GM TOPICAL CREAM 15 GM TUBE TP SCH ×3 (00:20→12:10)
[2019-12-06] MEDS: CEFAZOLIN 2 GM/D5W 2 GM/50 ML ML IVPB SCH ×2 (02:07→09:47)
[2019-12-06 08:45] LABS: BASO % 0.6 % (0-2.0); EOS % 1.8 % (0-4.5); HEMATOCRIT 35.7 % (32.4-45.2); HEMOGLOBIN 11.7 GM/dL (10.7-15.3); MCH 29.6 pg (25.7-33.7); MCHC 32.8 g/dl (32.0-36.0); MEAN CELL VOLUME 90.2 fl (80-96); MEAN PLT VOLUME 9.3 fl (7.5-11.1); MONO % 9.2 % (3.8-10.2); NEUT % 67.4 % (42.8-82.8); PLATELET COUNT 187 K/MM3 (134-434); RBC 3.96 M/mm3 (3.60-5.2); RDW 14.8 % (11.6-15.6); WHITE BLOOD COUNT 5.4 K/mm3 (4.0-10.0)
--- NOTE | 2019-12-06 09:12 | DS ---
Physical Examination Vital Signs: Vital Signs Temperature 98.6 F 12/06/19 06:00 Pulse Rate 66 12/06/19 06:00 Respiratory Rate 18 12/06/19 06:00 Blood Pressure 143/76 12/06/19 06:00 O2 Sat by Pulse Oximetry (%) 96 12/05/19 21:00 Constitutional: Yes: Calm, Poor Hygeine Eyes: Yes: EOM Intact HENT: Yes: Normocephalic Neck: Yes: Trachea Midline Cardiovascular: Yes: Regular Rate and Rhythm Respiratory: Yes: CTA Bilaterally Gastrointestinal: Yes: Normal Bowel Sounds, Soft, Abdomen, Obese Musculoskeletal: Yes: WNL Edema: Yes Edema: LLE: 1+, RLE: 1+ Peripheral Pulses WNL: Yes Integumentary: Yes: Venous Stasis Changes (with ulcers, currently dressed) ...Motor Strength: WNL Psychiatric: Yes: Other (lacks capacity) Labs: CBC, BMP 12/06/19 08:17 Discharge Summary Problems reviewed: Yes Reason For Visit: BRADYCARDIA,AMS,HYPERTENSION,DEHYDRATION Current Active Problems AMS (altered mental status) (Acute) Bradycardia (Acute) Hypothermia (Acute) Lower extremity cellulitis (Acute) Hospital Course: 84 yo lady admitted for lethargy/ hypothermic shock poor judgment and insight into her condition, well known to aps seen by psychiatry lacks capacity has mild cellulitis and chronic venous ulcers needs snf medically stable to dc on po po keflex continue wound care Condition: Guarded - Instructions Diet, Activity, Other Instructions: silvadene and raphael compression dressing daily to bilateral lower extremity wound care follow up weekly Disposition: [facility] FAC[facility] - Home Medications Comprehensive Discharge Medication List: Ambulatory Orders Acetaminophen [Tylenol .Regular Strength -] 650 mg PO Q4H PRN tablet 12/06/19 Cephalexin [Keflex] 500 mg PO BID #10 capsule 12/06/19 Mineral Oil/Petrolat,Wht/Water [Eucerin (Large Jar) -] 1 applic TP DAILY PRN jar 12/06/19 Nystatin Cream [Mycostatin Cream -] 1 applic TP Q6HPO applic 12/06/19 Silver Sulfadiazine 1% Top Cr [Silvadene -] 1 applic TP DAILY jar 12/06/19
[2019-12-06 09:22] LABS: ALBUMIN 2.5 g/dl (3.4-5.0); BILIRUBIN,TOTAL 0.3 mg/dL (0.2-1); BLOOD UREA NITROGEN 18.9 mg/dL (7-18); CALCIUM 8.6 mg/dL (8.5-10.1); CREATININE 0.9 mg/dL (0.55-1.3); POTASSIUM 3.9 mmol/L (3.5-5.1); TOT PROT 5.3 g/dl (6.4-8.2)
[2019-12-06] MEDS: SILVER SULFADIAZINE 1% TOP CREAM 50 GM JAR TP SCH (14:48)
[2019-12-06 15:34] VITALS: BP 130/74; PULSE 67; TEMP 98
== END 2019-12-06 17:33 | DRG 922 ==
LOC: JER 11:41 → JERBED 14:17 → JICU 18:00 → J5S 12-03 19:31
PROVIDERS: ADMIT Internal Medicine; ATTEND Internal Medicine
DX: T68.XXXA Hypothermia, initial encounter (principal); R57.8 Other shock; L03.115 Cellulitis of right lower limb; L03.116 Cellulitis of left lower limb; L97.828 Non-pressure chronic ulcer of other part of left lower leg with other specified severity; L97.818 Non-pressure chronic ulcer of other part of right lower leg with other specified severity; I10 Essential (primary) hypertension; I73.9 Peripheral vascular disease, unspecified; R00.1 Bradycardia, unspecified; F03.90 Unspecified dementia, unspecified severity, without behavioral disturbance, psychotic disturbance, mood disturbance, and anxiety; R41.82 Altered mental status, unspecified; E86.0 Dehydration; I95.9 Hypotension, unspecified; X31.XXXA Exposure to excessive natural cold, initial encounter; E66.9 Obesity, unspecified; Z68.34 Body mass index [BMI] 34.0-34.9, adult
CPT/HCPCS: 36415; 70450-TC; 71045-TC-FY; 80053; 81003; 82533; 82550; 82553; 82803; 82962; 83605; 83735; 84100; 84436; 84443; 84479; 84484; 85025; 85610; 85730; 86850; 86900; 86901; 87040; 87070; 87077; 87086; 87186; 87205; 93005; 93010; 93306-TC; 93970-TC; 93971; 97116-GP; 97162-GP; 99285-25; J7030